=== PATIENT | male | born 1955 | race Caucasian/White ===

== ENCOUNTER 2021-07-18 11:13 | Outpatient (REF) | payer MEDICARE, SELFPAY ==
[2021-07-18 14:41] LABS: Creatinine Urine 135.38 mg/dL; Microalbum/Creatinine Ratio Ur 18.4 ug/mg cr
[2021-07-18 14:49] LABS: Alanine Aminotransferase 28 U/L (0-40); Albumin Level 4.3 g/dL (3.5-5.0); Alkaline Phosphatase 45 U/L (39-117); Anion Gap 13 (12-20); Aspartate Amino Transferase 22 U/L (5-37); Bilirubin Total 0.7 mg/dL (0.0-1.0); Blood Urea Nitrogen 13 mg/dL (9-16); Calcium 9.1 mg/dL (8.4-10.2); Carbon Dioxide 27 mmol/L (22-29); Chloride 105 mmol/L (96-108); Cholesterol 254 mg/dL; Estimated Glomerular Filt Rate > 60; Glucose Fasting 106 mg/dL (60-99); HDL Cholesterol 29 mg/dL; LDL Cholesterol Calculated 185 mg/dl; Potassium 4.1 mmol/L (3.3-5.1); Sodium 141 mmol/L (135-145); Triglycerides 203 mg/dL
== END 2021-07-18 11:14 | disposition home or self-care (01) ==
LOC: HO.WFDLDS 11:13
PROVIDERS: Visit Provider Family Medicine
DX: Z00.00 Encounter for general adult medical examination without abnormal findings (principal); I10 Essential (primary) hypertension; Z12.5 Encounter for screening for malignant neoplasm of prostate
CPT/HCPCS: 36415; 80053; 80061; 82043; 84153; 84443

== ENCOUNTER 2021-09-08 10:13 | Outpatient (REF) | payer MEDICARE, SELFPAY ==
[2021-09-08 11:41] LABS: Anion Gap 11 (12-20); Blood Urea Nitrogen 16 mg/dL (9-16); Calcium 9.6 mg/dL (8.4-10.2); Carbon Dioxide 29 mmol/L (22-29); Chloride 106 mmol/L (96-108); Estimated Glomerular Filt Rate > 60; Glucose Random 107 mg/dL (60-115); Potassium 4.4 mmol/L (3.3-5.1); Sodium 142 mmol/L (135-145)
== END 2021-09-08 10:14 | disposition home or self-care (01) ==
LOC: HO.WFDLDS 10:13
PROVIDERS: Visit Provider Family Medicine
DX: Z00.00 Encounter for general adult medical examination without abnormal findings (principal)
CPT/HCPCS: 36415; 80048

== ENCOUNTER 2021-12-01 09:55 | Outpatient (REF) | payer MEDICARE, SELFPAY ==
[2021-12-01 10:54] LABS: Estimated Average Glucose 114 mg/dL; Hemoglobin A1c % 5.6 %
[2021-12-01 11:04] LABS: Cholesterol 248 mg/dL; HDL Cholesterol 35 mg/dL; LDL Cholesterol Calculated 186 mg/dl; Triglycerides 137 mg/dL
== END 2021-12-01 09:56 | disposition home or self-care (01) ==
LOC: HO.WFDLDS 09:55
PROVIDERS: Visit Provider Family Medicine
DX: Z00.00 Encounter for general adult medical examination without abnormal findings (principal); R73.01 Impaired fasting glucose
CPT/HCPCS: 36415; 80061; 83036

== ENCOUNTER 2022-07-14 12:46 | Outpatient (REF) | payer MEDICARE, SELFPAY ==
[2022-07-14 15:06] LABS: Estimated Average Glucose 117 mg/dL; Hemoglobin A1c % 5.7 %
[2022-07-14 15:57] LABS: Alanine Aminotransferase 20 U/L (0-40); Albumin Level 4.2 g/dL (3.5-5.0); Alkaline Phosphatase 41 U/L (39-117); Anion Gap 14 (12-20); Aspartate Amino Transferase 20 U/L (5-37); Bilirubin Total 0.5 mg/dL (0.0-1.0); Blood Urea Nitrogen 15 mg/dL (9-16); Calcium 8.8 mg/dL (8.4-10.2); Carbon Dioxide 22 mmol/L (22-29); Chloride 109 mmol/L (96-108); Cholesterol 191 mg/dL; Estimated Glomerular Filt Rate > 60; Glucose Random 97 mg/dL (60-115); HDL Cholesterol 35 mg/dL; LDL Cholesterol Calculated 131 mg/dl; Potassium 4.3 mmol/L (3.3-5.1); Sodium 141 mmol/L (135-145); Total Protein 6.7 g/dL (6.5-8.0); Triglycerides 127 mg/dL
[2022-07-15 20:33] LABS: LDL Cholesterol Direct 134 mg/dL (<100)
== END 2022-07-14 12:47 | disposition home or self-care (01) ==
LOC: HO.WFDLDS 12:46
PROVIDERS: Visit Provider Family Medicine
DX: Z00.00 Encounter for general adult medical examination without abnormal findings (principal); R73.03 Prediabetes; E78.5 Hyperlipidemia, unspecified
CPT/HCPCS: 36415; 80053; 80061; 83036; 83721

== ENCOUNTER 2022-11-14 10:19 | Outpatient (REF) | payer MEDICARE, SELFPAY ==
[2022-11-14 12:55] LABS: Appearance Urine Clear; Color Urine Yellow; Glucose Urine UA Negative (Negative); Leukocyte Esterase Urine Trace (Negative); Nitrite Urine Negative (Negative); UMIC TRIGGER UA YES; Urine Blood Trace (Negative); Urine Ketones Negative (Negative); Urine Protein Negative (Neg-Trace)
[2022-11-14 12:59] LABS: Bacteria Urine None Seen (None Seen); Hyaline Casts Urine 0-2 /LPF (0-2); RBC Urine 0-2 /HPF (0-2)
== END 2022-11-14 10:20 | disposition home or self-care (01) ==
LOC: HO.LAB 10:19
PROVIDERS: Visit Provider Family Medicine
DX: Z00.00 Encounter for general adult medical examination without abnormal findings (principal); R30.0 Dysuria; R73.03 Prediabetes
CPT/HCPCS: 81001; 87086

== ENCOUNTER → 2022-12-01 07:42 | Outpatient (REF) | payer MEDICARE, SELFPAY ==
--- NOTE | 2022-12-01 07:44 | CA_ITS ---
Transthoracic Echocardiogram Patient (Last, First, Middle): Dennys Eduardo, Gender: Male Date of : 1955 Age: 67 Procedure Date: 12/01/2022 Procedure Type: Transthoracic Echocardiogram Location: OP Height: 172.72 cm Weight: 124.74 kg BSA: 2.34 m2 Heart Rate: bpm BP: 140 / 82 mmHg Retail Leader: TO Referring MD: Mckinley Stanley MD Survey Statistician: Gilbert Bello MD Symptoms: R01.1 - Cardiac murmur, unspecified Study Quality: Fair/Contrast ECG Rhythm: Sinus Conclusions: - 1. Hyperdynamic LV systolic function with moderate LVH with LVEF of greater than 70% with suggestion of increased filling pressures 2. Severe aortic stenosis with mean gradient of 44 mmHg 3. Upper limits of normal RV systolic pressure with mildly elevated right atrial pressures 4. No gross pericardial effusion Findings Procedure Information Contrast agent, definity, is being given per protocol without apparent complications. Left Ventricle Normal left ventricular cavity size. There is moderately increased left ventricular wall thickness. The left ventricular systolic function is hyperdynamic. The visually estimated ejection fraction is >70%. Spectral Doppler is indicative of an impaired relaxation filling pattern. Elevated filling pressures. E/E prime ratio is >15, consistent with elevated filling pressures. Right Ventricle Normal right ventricular cavity size and systolic function. Atria Both atria are normal in size. Interatrial shunt cannot be excluded. Aortic Valve There is moderate calcification of the aortic valve. There is severe aortic valve stenosis. The peak aortic gradient is 71 mmHg.The mean gradient is 44 mmHg. The aortic valve area is 1.00 cm2. There is mild aortic valve regurgitation. Mitral Valve There is mild anterior and moderate posterior mitral leaflet thickening. There is mild mitral annular calcification. There is trace mitral valve regurgitation. There is no mitral valve stenosis. Pulmonic Valve The pulmonic valve was not well visualized. Tricuspid Valve Likely normal tricuspid valve structure and function. Mildly elevated right atrial pressure. There is no evidence of pulmonary hypertension. Great Vessels The pulmonary artery was not well visualized. There is mild dilatation of the ascending aorta measuring 3.80 cm. Venous The inferior vena cava is mildly dilated and collapses less than 50% with inspiration. Pericardium/Pleural There is no evidence of pericardial effusion. Prior Study Comparison No prior study available for comparison. Measurements 2D Linear Measurements IVSd: 1.52 0.6-0.9/0.6-1.0 cm LVIDd: 4.13 3.9-5.3/4.2-5.9 cm LVIDd Index: 1.76 2.4-3.2/2.2-3.1 cm/m2 LVIDs: 2.33 2.0-3.6 cm LVPWd: 1.42 0.7-1.1 cm LA Diam: 4.10 2.7-3.8/3.0-4.0 cm LAIDs Index: 1.75 1.5-2.3 cm/m2 LV Mass: 294.27 67-162/88-224 g LV Mass Index: 125.75 43-95/49-115 g/m2 LVOT Diam: 2.10 3.0+(-)1.3 cm 2D Systolic Function EF 4C: 72.10 >55% Mitral Valve MV VTI: 0.39 MV Pk Gigi: 1.23 MV Mn Gigi: 0.73 MV Pk Grad: 6.00 MV Mn Grad: 2.00 MV Pk E: 0.94 MV PK A: 1.23 MV Decel Time: 229.00 E/A: 0.80 E'Lateral: 5.55 E'Medial: 5.00 E/E' Med: 18.90 E/E' Lat: 17.00 PHT: 67.00 MVA PHT: 3.28 MVA Continuity: 2.77 Decel [place]: 4.12 Aortic Valve AoV Pk Gigi: 4.21 AoV Mn Gigi: 3.16 AoV VTI: 1.08 AoV Pk Grad: 71.00 Aov Mn Grad: 44.00 PRASAD Cont.VTI: 1.00 AI Pk Gigi: 4.37 AI [place]: 2.18 LVOT LVOT Pk Gigi: 1.46 LVOT Mn Gigi: 1.02 LVOT VTI: 0.31 LVOT Pk Grad: 9.00 LVOT Mn Grad: 5.00 LVOT Diam: 2.10 LVOT Area: 3.46 Diastolic Function MV Pk E: 0.94 MV Pk A: 1.23 E/A: 0.80 E'Medial: 5.00 E/E' Med: 18.90 E' Laterial: 5.55 E/E' Lat: 17.00 Right Ventricle TAPSE (mm): 27.20 TVS' Gigi: 12.80 Tricuspid Valve TR Pk Gigi: 2.63 TR Pk Grad: 28.00 RA Press: 8.00 RVSP: 36.00 Great Vessels Aorta Sinus of Valsalva: 2.96 2.0-3.[address] [place]: 2.50 1.7-3.4 cm Ao Asc: 3.80 2.1-3.4 cm Updated in Other Vendor System with Status of Final Gilbert Bello MD electronically signed on 12/03/2022 12:02:32 PM with status of Final
== END ==
LOC: HO.CARD 07:42
PROVIDERS: PCP Family Medicine; Visit Provider Family Medicine
DX: R07.89 Other chest pain (principal); R01.1 Cardiac murmur, unspecified
CPT/HCPCS: 93306; Q9957

== ENCOUNTER 2023-04-27 14:19 | Outpatient (AMB) | payer MEDICARE, SELFPAY ==
--- NOTE | 2023-04-27 14:23 | A.OFFPC_ITS ---
Vital Signs 04/27/23 14:24 Height 5 ft 7 in Weight 275 lb 4 oz BMI 43.1 BP 118/74 Blood Pressure Location Lt brachial Respiration 12 Pulse 73 Pulse Source Pulse Oximeter Pulse Oximetry (%) 99 Oxygen Delivery Method Room Air Intake Visit Reasons: f/u hypertension and chronic conditions Intake Note: Patient is here to follow up on hypertension and chronic conditions. Allergies Hbjjomb-DMQ-ByM Reductase Inhibitor Allergy (Severe, Verified 04/27/23 14:27) unable to walk Tobacco use date assessed: 11/14/22 HPI f/u hypertension and chronic conditions HPI Details 67 y/o male presents to f/u hypertension and severe aortic valve stenosis. Now?s/p?aortic?valve?replacement?with?bioprosthetic?valve?and?also?CABG. [facility] Dr. Murray Pt notes he started cardiac rehab yesterday. Pt reports he has about 7 tablets left of his Lasik. HPI Comments History of Present Illness0 Details Documentation assistance for Mckinley Stanley MD, was provided by Wm West, Dumb Waiter Operator on 04/27/2023 3:14 PM EST. I, Dr. Stanley, have read, observed, and verified documentation. [facility] Medical History (Updated 04/27/23 @ 15:20 by Wm West) Aortic stenosis High blood pressure High cholesterol Surgical History (Updated 04/27/23 @ 15:20 by Wm West) S/P triple vessel bypass S/P AVR (aortic valve replacement) History of tooth extraction History of cataract surgery Family History (Reviewed 04/27/23 @ 14:37 by Floresita Bellamy [facility]) Father Heart attack Paternal Grandfather Heart attack Mother Cancer Brother Cancer Other Substance use disorder Social History (Reviewed 04/27/23 @ 14:37 by Floresita Bellamy [facility]) Housing: House Alcohol intake: never Patient Tobacco Use Status: Never used Tobacco e-Cigarette/Vaping Use: Never Used Second Hand Smoke Exposure: No service: No Current occupational status: retired Current occupational exposures/hazards: No Cognitive needs: No Hearing needs: No Vision needs: Yes Questionnaire PHQ-9 Over the last 2 weeks, how often have you been bothered by any of the following problems? 1. Little interest or pleasure in doing things: not at all 2. Feeling down, depressed, or hopeless: not at all 3. Trouble falling or staying asleep, or sleeping too much: not at all 4. Feeling tired or having little energy: not at all 5. Poor appetite or overeating: not at all 6. Feeling bad about yourself - or that you are a failure or have let yourself or your family down: not at all 7. Trouble concentrating on things, such as reading the newspaper or watching television: not at all 8. Moving or speaking so slowly that other people could have noticed. Or the opposite - being so fidgety or restless that you have been moving around a lot more than usual: not at all 9. Thoughts that you would be better off or of hurting yourself in some way: not at all Total score: 0 Source: Developed by Drs. Dennys Brady, Wanda Gupta, Andres Dorman and colleagues, with an educational gisele from [employer]. Thrive Questionnaire Date Thrive assessed: 07/18/21 I am a: Patient What is your living situation today?: I have a steady place to live Within the past 12 months, did the food you bought not last and you didn't have the money to get more?: Never true Within the past 12 months, did you worry whether your food would run out before you got money to buy more?: Never true Do you have trouble paying for medicines?: No Do you have trouble getting transportation to medical appointments?: No Do you have trouble paying your heating and electricity bill?: No Do you have trouble taking care of your child, family member or friend?: No Do you have trouble with day-to-day activities such as bathing, preparing meals, shopping, managing finances, etc.?: No Are you currently unemployed and looking for a job?: No Are you interested in more education?: No AUDIT C Alcohol Use Questionnaire (AUDIT-C) 1. How often do you have a drink containing alcohol?: Never 3. How often do you have six or more drinks on one occasion?: Never Total Score: 0 CARMELINA-7 AMB Questionnaire CARMELINA-7 Date CARMELINA - 7 assessed: 04/27/23 Feeling nervous, anxious, or on edge: 0 = Not at all Not being able to stop or control worryin = Not at all Worrying too much about different things: 0 = Not at all Trouble relaxin = Not at all Being so restless that it is hard to sit still: 0 = Not at all Becoming easily annoyed or irritable: 0 = Not at all Feeling afraid as if something awful might happen: 0 = Not at all Total CARMELINA-7 score (0-4 normal; 5-9 mild; 10-14 moderate; 15-21 severe): 0 Source: Developed by Drs. Dennys Brady, Wanda Gupta, Andres Dorman and colleagues, with an educational gisele from [employer]. Review of Systems Const Denies chills, Denies fatigue, Denies fever(s), Denies headache(s) and Denies w eakness ENT Denies dizziness and Denies headache(s) Card Denies dyspnea Resp Denies cough, Denies dyspnea, Denies wheezing and Denies other (shortness of breath) Musc Denies numbness and Denies tingling Neuro Denies dizziness, Denies headache(s), Denies numbness, Denies tingling and Denies weakness Psych Denies anxiety and Denies depression Endo Denies fatigue Aller/Immun Denies wheezing Physical exam (Primary Care) Vital Signs: Last Vital Signs Pulse 73 04/27/23 14:24 Resp 12 04/27/23 14:24 BP 118/74 04/27/23 14:24 Pulse Ox 99 04/27/23 14:24 Oxygen Delivery Method Room Air 04/27/23 14:24 BMI result Body Mass Index 43.1 Tobacco/Smoking Status: Tobacco use Status Tobacco use date assessed 11/14/22 04/27/23 14:36 Patient Tobacco Use Status Never used Tobacco 04/27/23 14:36 e-Cigarette/Vaping Use Never Used 04/27/23 14:36 PHQ-9: PHQ-9 Score PHQ-9: Total score 0 04/27/23 15:04 Thrive Assessment: Date of Thrive Assessment Date Thrive assessed 07/18/21 04/27/23 14:36 Const General: well developed; No acute distress Nutritional Appearance: well nourished and obese morbidly obese Orientation/consciousness: patient oriented x3 HENMT Head: Yes normocephalic and Yes atraumatic Eyes General: appearance normal, both eyes and all related structures Pupils: Equal, round and reactive pupils present EOM: EOMs intact bilaterally Resp Effort & Inspection: normal respiratory effort Auscultation: clear to auscultation bilaterally Cardio Rate: regular rate Rhythm: regular rhythm Heart sounds: S1 normal heart sound present, S2 normal heart sound present, no gallops, Murmur heart sound present and no rubs Neuro General: patient oriented x3 and gait normal Cranial nerves: Yes Equal, round and reactive pupils present Extrem Other: Right?lower?extremity: ?1+?edema Left?lower?extremity:??Trace?edema Psych Affect: normal affect Assessment and Plan Assessment & Plan (1) Essential hypertension: Code(s): I10 - Essential (primary) hypertension Plan: Blood?pressure?appears?well?controlled?on?metoprolol?and?amiodarone. Goal?is?less?than?130/80 Continue?current?medication?regimen He?has?a?blood?pressure?monitor?at?home?and?he?will?let?me ?know?if?his?blood?pressures?are?creeping?up (2) Severe aortic stenosis: Code(s): I35.0 - Nonrheumatic aortic (valve) stenosis Plan: Now?s/p?aortic?valve?replacement?with?bioprosthetic?valve He?is?on?aspirin?and?clopidogrel?and?has?follow-up?with?Cardiology Also?beginning?cardiac?rehab. (3) S/P AVR (aortic valve replacement): Code(s): Z95.2 - Presence of prosthetic heart valve Plan: As?above (4) Status post coronary artery bypass graft: Code(s): Z95.1 - Presence of aortocoronary bypass graft Plan: Coronary?artery?disease?and?now?s/p?CABG Continue?aspirin?and?amiodarone?as?well?as?metoprolol Continue?Zetia Follow-up?with?Cardiology (5) Lower extremity edema: Code(s): R60.0 - Localized edema Plan: Improved?after aortic?valve?replacement?and?CABG?surgeries He?did?have?some?mild?acute?renal?injury Also?has?increased?lower?extremity?edema?on?right?lower?extremity?due?to?removal ?of?great?saphenous?vein?for?bypass?grafting. Elevate?legs Continue?Lasix?as?needed?and?he?can?call?me?if?he?has?worsening?edema. Check?labs?including?renal?function (6) Coronary artery disease: Code(s): I25.10 - Atherosclerotic heart disease of [place] coronary artery without angina pectoris Orders: Orders Comprehensive Met. Panel Today I35.0 - Nonrheumatic aortic (valve) stenosis Coding Level of Care Code Est Pt Level 4 (48351) Diagnoses Essential hypertension I10 Severe aortic stenosis I35.0 S/P AVR (aortic valve replacement) Z95.2 Status post coronary artery bypass graft Z95.1 Lower extremity edema R60.0 Coronary artery disease I25.10
[2023-04-27 14:24] VITALS: BP 118/74; PULSE 73; RESP 12; O2SAT 99; BMI 43.1
== END 2023-04-27 15:54 | disposition home or self-care (01) ==
PROVIDERS: PCP Family Medicine; Visit Provider Family Medicine
DX: I10 Essential (primary) hypertension (principal); I35.0 Nonrheumatic aortic (valve) stenosis; Z95.2 Presence of prosthetic heart valve; Z95.1 Presence of aortocoronary bypass graft; R60.0 Localized edema; I25.10 Atherosclerotic heart disease of native coronary artery without angina pectoris
CPT/HCPCS: 99214

== ENCOUNTER 2023-05-03 09:00 | Outpatient (REF) | payer MEDICARE, SELFPAY | END 2023-05-03 09:01 | disposition home or self-care (01) | LOC: HO.WFDLDS 09:00 | PROVIDERS: Visit Provider Family Medicine | DX: I35.0 Nonrheumatic aortic (valve) stenosis (principal) | CPT/HCPCS: 36415; 80053 ==

== ENCOUNTER 2023-06-14 14:01 | Outpatient (AMB) | payer MEDICARE, SELFPAY ==
--- NOTE | 2023-06-14 13:53 | MHC.PC.OV ---
Intake Visit Reasons: f/u labs Allergies Mvrwwlt-[id number] Reductase Inhibitor Allergy (Severe, Verified 06/14/23 13:54) unable to walk Tobacco use date assessed: 11/14/22 Fall risk assessment: No Falls in past year Last assessed Fall Risk: 06/14/23 HPI f/u labs HPI Details 68 y/o male presents to f/u CPE-labs via telemedicine. Labs were drawn 05/03/23. Reviewed labs with pt. Elevated random glucose at 116. Hx of pre-diabetes and last A1c 11/14/22 6.1%. No recent lipid panel to review. Renal functions are fine. [facility] Medical History (Updated 04/27/23 @ 15:20 by Wm West) Aortic stenosis High blood pressure High cholesterol Surgical History (Updated 04/27/23 @ 15:20 by Wm West) S/P triple vessel bypass S/P AVR (aortic valve replacement) History of tooth extraction History of cataract surgery Family History (Reviewed 04/27/23 @ 14:37 by Floresita Bellamy [facility]) Father Heart attack Paternal Grandfather Heart attack Mother Cancer Brother Cancer Other Substance use disorder Social History (Reviewed 04/27/23 @ 14:37 by Floresita Bellamy [facility]) Housing: House Alcohol intake: never Patient Tobacco Use Status: Never used Tobacco e-Cigarette/Vaping Use: Never Used Second Hand Smoke Exposure: No service: No Current occupational status: retired Current occupational exposures/hazards: No Cognitive needs: No Hearing needs: No Vision needs: Yes Questionnaire Thrive Questionnaire Date Thrive assessed: 07/18/21 CARMELINA-7 AMB Questionnaire CARMELINA-7 Date CARMELINA - 7 assessed: 04/27/23 Source: Developed by Drs. Dennys Brady, Wanda Gupta, Andres Dorman and colleagues, with an educational gisele from [employer]. Review of Systems Const Denies chills, Denies fatigue, Denies fever(s), Denies headache(s) and Denies weakness ENT Denies dizziness and Denies headache(s) Card Denies dyspnea Resp Denies cough, Denies dyspnea, Denies wheezing and Denies other (shortness of breath) Musc Denies numbness and Denies tingling Neuro Denies dizziness, Denies headache(s), Denies numbness, Denies tingling and Denies weakness Psych Denies anxiety and Denies depression Endo Denies fatigue Aller/Immun Denies wheezing Physical exam (Primary Care) Tobacco/Smoking Status: Tobacco use Status Tobacco use date assessed 11/14/22 06/14/23 13:58 Patient Tobacco Use Status Never used Tobacco 06/14/23 13:58 e-Cigarette/Vaping Use Never Used 06/14/23 13:58 Thrive Assessment: Date of Thrive Assessment Date Thrive assessed 07/18/21 06/14/23 13:58 Telehealth Telehealth Location of provider rendering services: practice address Location of patient: address on file Patient Identification confirmed using: Name, : Yes Telehealth method: voice only Patient verbally consented to treatment: Yes Patient verbally consented to billing insurance company: Yes Patient informed of any privacy concerns related to visit: Yes Minutes spent on Phone/Video with Pt.: 6 Assessment and Plan Assessment & Plan (1) JESSICA (acute kidney injury): Code(s): N17.9 - Acute kidney failure, unspecified Plan: Follow-up?of?labs?after?concerns?for?acute?kidney?injury?after?CABG Creatinine?and?EGFR?are?within?normal?limits (2) Coronary artery disease: Code(s): I25.10 - Atherosclerotic heart disease of [place] coronary artery without angina pectoris Plan: Stable?and?followed?by?cardiology. Continues?Cardiac?rehab He?is?on?Zetia?but?has?not?tolerated?any?statins Encouraged?diet?low?in?saturated?fats?and?cholesterol,?weight?control?and?exercise (3) Hyperlipidemia: Code(s): E78.5 - Hyperlipidemia, unspecified Plan: As?above Coding Level of Care Code Tele Est Pt Level 2 (82017) Diagnoses JESSICA (acute kidney injury) N17.9 Coronary artery disease I25.10 Hyperlipidemia E78.5
== END 2023-06-14 14:15 ==
LOC: HO.HMGFM 14:01
PROVIDERS: PCP Family Medicine; Visit Provider Family Medicine
DX: N17.9 Acute kidney failure, unspecified (principal); I25.10 Atherosclerotic heart disease of native coronary artery without angina pectoris; E78.5 Hyperlipidemia, unspecified
CPT/HCPCS: 99441

== ENCOUNTER 2023-09-05 11:37 | Outpatient (AMB) | payer MEDICARE, SELFPAY ==
--- NOTE | 2023-09-05 11:55 | MHC.PC.OV ---
Vital Signs 09/05/23 11:56 Height 5 ft 7 in Weight 295 lb BMI 46.2 BP 116/62 Blood Pressure Location Lt brachial Respiration 16 Pulse 70 Pulse Source Pulse Oximeter Pulse Oximetry (%) 95 Oxygen Delivery Method Room Air Intake Visit Reasons: 3m follow up Intake Note: Patient is here to follow up on bilateral leg swelling. Pattient would like refill of Furosemide. Allergies Epsezji-HYA-KmC Reductase Inhibitor Allergy (Severe, Verified 09/05/23 11:58) unable to walk Tobacco use date assessed: 11/14/22 HPI 3m follow up HPI Details 68 y/o male presents to f/u hypertension, pre-diabetes and lipids. Blood pressure today 116/62. He is on carvedilol 12.5mg, lisinopril 20mg daily. Pt reports some lower extremity swelling. He denies any changes to his diet. He states he has been getting some exercise. Pt reports cardiology is at [facility]. [facility] Medical History (Updated 09/05/23 @ 12:45 by Wm West) Aortic stenosis High blood pressure High cholesterol Surgical History (Updated 04/27/23 @ 15:20 by Wm West) S/P triple vessel bypass S/P AVR (aortic valve replacement) History of tooth extraction History of cataract surgery Family History Father Heart attack Paternal Grandfather Heart attack Mother Cancer Brother Cancer Other Substance use disorder Social History Housing: House Alcohol intake: never Patient Tobacco Use Status: Never used Tobacco e-Cigarette/Vaping Use: Never Used Second Hand Smoke Exposure: No service: No Current occupational status: retired Current occupational exposures/hazards: No Cognitive needs: No Hearing needs: No Vision needs: Yes Questionnaire Thrive Questionnaire Date Thrive assessed: 07/18/21 CARMELINA-7 AMB Questionnaire CARMELINA-7 Date CARMELINA - 7 assessed: 04/27/23 Source: Developed by Drs. Dennys Brady, Wanda Gupta, Andres Dorman and colleagues, with an educational gisele from [employer]. Review of Systems Const Denies chills, Denies fatigue, Denies fever(s), Denies headache(s) and Denies weakness ENT Denies dizziness and Denies headache(s) Card Denies dyspnea Resp Denies cough, Denies dyspnea, Denies wheezing and Denies other (shortness of breath) Musc Denies numbness and Denies tingling Neuro Denies dizziness, Denies headache(s), Denies numbness, Denies tingling and Denies weakness Psych Denies anxiety and Denies depression Endo Denies fatigue Aller/Immun Denies wheezing Physical exam (Primary Care) Vital Signs: Last Vital Signs Pulse 70 09/05/23 11:56 Resp 16 09/05/23 11:56 BP 116/62 09/05/23 11:56 Pulse Ox 95 09/05/23 11:56 Oxygen Delivery Method Room Air 09/05/23 11:56 BMI result Body Mass Index 46.2 Tobacco/Smoking Status: Tobacco use Status Tobacco use date assessed 11/14/22 09/05/23 12:01 Patient Tobacco Use Status Never used Tobacco 09/05/23 12:01 e-Cigarette/Vaping Use Never Used 09/05/23 12:01 Thrive Assessment: Date of Thrive Assessment Date Thrive assessed 07/18/21 09/05/23 12:01 Const General: well developed; No acute distress Nutritional Appearance: well nourished and obese morbidly obese Orientation/consciousness: patient oriented x3 HENMT Head: Yes normocephalic and Yes atraumatic Eyes General: appearance normal, both eyes and all related structures Pupils: Equal, round and reactive pupils present EOM: EOMs intact bilaterally Resp Effort & Inspection: normal respiratory effort Auscultation: clear to auscultation bilaterally Cardio Rate: regular rate Rhythm: regular rhythm Heart sounds: S1 normal heart sound present, S2 normal heart sound present, no gallops, Murmur heart sound present and no rubs Neuro General: patient oriented x3 and gait normal Cranial nerves: Yes Equal, round and reactive pupils present Psych Affect: normal affect Assessment and Plan Assessment & Plan (1) Essential hypertension: Code(s): I10 - Essential (primary) hypertension Plan: Blood?pressure?is?controlled.??Goal?is?less?than?130/80?for?patient?with?coronary?artery?disease Continue?current?medication?regimen (2) Morbid obesity with BMI of 45.0-49.9, adult: Code(s): E66.01 - Morbid (severe) obesity due to excess calories; Z68.42 - Body mass index [BMI] 45.0-49.9, adult Plan: Patient?has?gained?considerable?weight?since?last?visit;?20?lb?in?4?months. He?has?mild?edema?and?feels?that?this?is?mostly?water?weight?though?I?suspect?edema?is?contributing?only?partially Encouraged?diet?exercise?and?weight?loss. Patient?does?not?feel?that?he?can?exercise?much?and?does?not?feel?he?has?much?he?can?do?about?his?diet?but?he?does?agree?to?have?the?nurse?navigator?contact?him?to?go?over?his?diet. (3) Coronary artery disease: Code(s): I25.10 - Atherosclerotic heart disease of [place] coronary artery without angina pectoris Plan: Followed?by[facility]?Cardiology?and?had?recent?echocardiogram?as?well. Will?request?most?recent?note Continue?to?follow-up?with?Cardiology?as?recommended Encouraged?diet,?exercise,?weight?loss. Had?ordered?lipids?at?last?visit?but?he?has?not?had?these?drawn?yet.??I?have?requested?he?get?them?drawn?and?we?can?follow-up?on?them?at?his?next?visit. (4) Hyperlipidemia: Code(s): E78.5 - Hyperlipidemia, unspecified Plan: As?above,?has?not?gotten?his?lipids?drawn?but?will?do?so (5) Swelling of lower extremity: Code(s): M79.89 - Other specified soft tissue disorders Plan: Mild?edema?of?feet?and?ankles Had?been?on?furosemide?in?the?past.??Will?give?him?a?low?dose?p.r.n. Avoid?salt?and?sodium (6) Pre-diabetes: Code(s): R73.03 - Prediabetes Plan: A1c?5.7%?in?June. Too?soon?to?recheck?this. He?has?gained?considerable?weight?and?I?encouraged?him?to?work?at?diet,?exercise?and?weight?loss. Will?recheck?A1c?at?next?visit Coding Level of Care Code Est Pt Level 4 (06526) Diagnoses Essential hypertension I10 Morbid obesity with BMI of 45.0-49.9, adult E66.01; Z68.42 Coronary artery disease I25.10 Hyperlipidemia E78.5 Swelling of lower extremity M79.89 Pre-diabetes R73.03
[2023-09-05 11:56] VITALS: BP 116/62; PULSE 70; RESP 16; O2SAT 95; BMI 46.2
== END 2023-09-05 12:58 | disposition home or self-care (01) ==
PROVIDERS: PCP Family Medicine; Visit Provider Family Medicine
DX: I10 Essential (primary) hypertension (principal); E66.01 Morbid (severe) obesity due to excess calories; Z68.42 Body mass index [BMI] 45.0-49.9, adult; I25.10 Atherosclerotic heart disease of native coronary artery without angina pectoris; E78.5 Hyperlipidemia, unspecified; M79.89 Other specified soft tissue disorders; R73.03 Prediabetes
CPT/HCPCS: 99214

== ENCOUNTER 2023-10-01 12:21 | Outpatient (REF) | payer MEDICARE, SELFPAY ==
[2023-10-01 14:25] LABS: Appearance Urine Clear; Color Urine Yellow; Glucose Urine UA Negative (Negative); Leukocyte Esterase Urine Negative (Negative); Nitrite Urine Negative (Negative); PH 5.5 (5.0-9.0); Specific Gravity - Urine 1.015 (1.005-1.025); Urine Blood Negative (Negative); Urine Ketones Negative (Negative); Urine Protein Negative (Neg-Trace)
[2023-10-01 15:30] LABS: Alanine Aminotransferase 20 U/L (0-40); Albumin Level 4.1 g/dL (3.5-5.0); Alkaline Phosphatase 42 U/L (39-117); Anion Gap 11 (12-20); Aspartate Amino Transferase 18 U/L (5-37); Bilirubin Total 0.5 mg/dL (0.0-1.0); Blood Urea Nitrogen 18 mg/dL (9-16); Calcium 8.9 mg/dL (8.4-10.2); Carbon Dioxide 27 mmol/L (22-29); Chloride 109 mmol/L (96-108); Cholesterol 182 mg/dL (<200); Estimated Glomerular Filt Rate > 60; Glucose Fasting 101 mg/dL (60-99); HDL Cholesterol 31 mg/dL (>40); LDL Cholesterol Calculated 123 mg/dL (<100); Potassium 3.8 mmol/L (3.3-5.1); Sodium 143 mmol/L (135-145); Total Protein 7.1 g/dL (6.5-8.0); Triglycerides 142 mg/dL (<150)
== END 2023-10-01 12:22 | disposition home or self-care (01) ==
LOC: HO.WFDLDS 12:21
PROVIDERS: Visit Provider Family Medicine
DX: Z00.00 Encounter for general adult medical examination without abnormal findings (principal); R30.0 Dysuria; I25.10 Atherosclerotic heart disease of native coronary artery without angina pectoris
CPT/HCPCS: 36415; 80053; 80061; 81003

== ENCOUNTER 2023-11-09 11:20 | Outpatient (AMB) | payer MEDICARE, SELFPAY ==
--- NOTE | 2023-11-09 12:24 | A.OFFPC_ITS ---
Vital Signs 11/09/23 12:26 Height 5 ft 7 in Weight 290 lb 8 oz BMI 45.5 BP 116/64 Blood Pressure Location Lt brachial Position Sitting Pulse 64 Pulse Source Pulse Oximeter Pulse Oximetry (%) 96 Oxygen Delivery Method Room Air Intake Visit Reasons: 3m follow up hdl,wt gain Intake Note: Patient is here for 3 month follow up on cholesterol blood work, and weight gain. Allergies Edjgsei-DJZ-YmX Reductase Inhibitor Allergy (Severe, Verified 11/09/23 12:28) unable to walk Medication List - Last Reconciled 11/09/23 by Mckinley Stanley MD acetaminophen 325 mg PO Q4H PRN aspirin 81 mg PO DAILY carvedilol 12.5 mg PO BID clopidogrel 75 mg PO DAILY ezetimibe 10 mg PO DAILY furosemide 20 mg PO DAILY PRN 30 days lisinopril 20 mg PO DAILY Tobacco use date assessed: 11/09/23 Fall risk assessment: No Falls in past year Last assessed Fall Risk: 11/09/23 Dental Screening Dental Screen Date: 11/09/23 Did you have a dental visit in the last 12 months?: Yes Did you have a dental problem in the last 6 months where you did not have access to dental care?: No Was dental information given to patient?: Patient has dentist HPI 3m follow up hdl,wt gain HPI Details 68 y/o male presents to f/u hypertension , HLD and pre-diabetes. Weight has been improving - lost 5 lbs since office visit in August. Blood pressure today 116/64. He is on lisinopril 20mg, carvedilol 12.5mg b.id. Hx of CAD. Labs were drawn 10/01/23. Reviewed labs with pt. Triglycerides 142. TC 182. LDL 123. HDL low at 31. He is on ezetimibe 10mg daily. Unable to tolerate statins. A1c today 11/09/23 is 5.9%. Pt reports knee pain. PFSH Medical History Aortic stenosis High blood pressure High cholesterol Surgical History S/P triple vessel bypass S/P AVR (aortic valve replacement) History of tooth extraction History of cataract surgery Family History Father Heart attack Paternal Grandfather Heart attack Mother Cancer Brother Cancer Other Substance use disorder Social History Housing: House Alcohol intake: never Patient Tobacco Use Status: Never used Tobacco e-Cigarette/Vaping Use: Never Used Second Hand Smoke Exposure: No service: No Current occupational status: retired Current occupational exposures/hazards: No Cognitive needs: No Hearing needs: No Vision needs: Yes Questionnaire PHQ-9 Over the last 2 weeks, how often have you been bothered by any of the following problems? 1. Little interest or pleasure in doing things: not at all 2. Feeling down, depressed, or hopeless: not at all 3. Trouble falling or staying asleep, or sleeping too much: not at all 4. Feeling tired or having little energy: not at all 5. Poor appetite or overeating: not at all 6. Feeling bad about yourself - or that you are a failure or have let yourself or your family down: not at all 7. Trouble concentrating on things, such as reading the newspaper or watching television: not at all 8. Moving or speaking so slowly that other people could have noticed. Or the opposite - being so fidgety or restless that you have been moving around a lot more than usual: not at all 9. Thoughts that you would be better off or of hurting yourself in some way: not at all Total score: 0 Depression Screening Interpretation: Negative Depression Screening Done: Yes Source: Developed by Drs. Dennys Brady, Wanda Gupta, Andres Dorman and colleagues, with an educational gisele from [employer]. Thrive Questionnaire Date Thrive assessed: 11/09/23 I am a: Patient What is your living situation today?: I have a steady place to live Within the past 12 months, did the food you bought not last and you didn't have the money to get more?: Never true Within the past 12 months, did you worry whether your food would run out before you got money to buy more?: Never true Do you have trouble paying for medicines?: No Do you have trouble getting transportation to medical appointments?: No Do you have trouble paying your heating and electricity bill?: No Do you have trouble taking care of your child, family member or friend?: No Do you have trouble with day-to-day activities such as bathing, preparing meals, shopping, managing finances, etc.?: No Are you currently unemployed and looking for a job?: No Are you interested in more education?: No THRIVE Score: 0 AUDIT C Alcohol Use Questionnaire (AUDIT-C) 1. How often do you have a drink containing alcohol?: Never 3. How often do you have six or more drinks on one occasion?: Never Total Score: 0 CARMELINA-7 AMB Questionnaire CARMELINA-7 Date CARMELINA - 7 assessed: 11/09/23 Feeling nervous, anxious, or on edge: 0 = Not at all Not being able to stop or control worryin = Not at all Worrying too much about different things: 0 = Not at all Trouble relaxin = Not at all Being so restless that it is hard to sit still: 0 = Not at all Becoming easily annoyed or irritable: 0 = Not at all Feeling afraid as if something awful might happen: 0 = Not at all Total CARMELINA-7 score (0-4 normal; 5-9 mild; 10-14 moderate; 15-21 severe): 0 Source: Developed by Drs. Dennys Brady, Wanda Gupta, Andres Dorman and colleagues, with an educational gisele from [employer]. Review of Systems Const Denies chills, Denies fatigue, Denies fever(s), Denies headache(s) and Denies weakness ENT Denies dizziness and Denies headache(s) Card Denies chest pain, Denies lightheadedness, Denies dyspnea and Denies other (Palpitations) Resp Denies cough, Denies dyspnea, Denies wheezing and Denies other ( shortness of breath) Musc Denies numbness and Denies tingling Neuro Denies dizziness, Denies headache(s), Denies numbness, Denies tingling, Denies paresthesias and Denies weakness Psych Denies anxiety and Denies depression Endo Denies fatigue Aller/Immun Denies wheezing Physical exam (Primary Care) Vital Signs: Last Vital Signs Pulse 64 11/09/23 12:26 BP 116/64 11/09/23 12:26 Pulse Ox 96 11/09/23 12:26 Oxygen Delivery Method Room Air 04/12/24 12:26 BMI result Body Mass Index 45.5 Tobacco/Smoking Status: Tobacco use Status Tobacco use date assessed 11/09/23 11/09/23 12:30 Patient Tobacco Use Status Never used Tobacco 11/09/23 12:26 e-Cigarette/Vaping Use Never Used 11/09/23 12:26 PHQ-9: PHQ-9 Score PHQ-9: Total score 0 11/09/23 12:58 Depression Screening Interpretation: Negative Thrive Assessment: Date of Thrive Assessment Date Thrive assessed 11/09/23 11/09/23 12:36 Const General: no acute distress and well developed Nutritional Appearance: obese morbidly obese Orientation/consciousness: patient oriented x3 HENMT Head: Yes normocephalic and Yes atraumatic Eyes General: appearance normal, both eyes and all related structures Pupils: Equal, round and reactive pupils present EOM: EOMs intact bilaterally Resp Effort & Inspection: normal respiratory effort Auscultation: clear to auscultation bilaterally Cardio Rate: regular rate Rhythm: regular rhythm Heart sounds: S1 normal heart sound present, S2 normal heart sound present, no gallops, no murmurs and no rubs Neuro General: patient oriented x3 and gait normal Cranial nerves: Yes Equal, round and reactive pupils present Psych Affect: normal affect Results AMB Hemoglobin A1c AMB Hemoglobin A1c 5.9 % Last Edit by Sharee Ramey CMA on 11/09/23 12:58 Results Reviewed Results Reviewed: Laboratory Last Values Hgb A1c (Clinic) 5.9 % (4.0-6.0) 11/09/23 12:56 Assessment and Plan Assessment & Plan (1) Essential hypertension: Code(s): I10 - Essential (primary) hypertension Plan: Blood?pressure?is?controlled.??Goal?is?less?than?130/80 Continue?lisinopril?and?carvedilol Continue?weight?loss (2) Hyperlipidemia: Code(s): E78.5 - Hyperlipidemia, unspecified Plan: LDL?cholesterol?has?improved?but?still?above?goal?of?less?than?70 He?is?tolerating?Zetia?every?other?day?and?agrees?to?try?taking?this?daily Has?not?tolerated?statin?medication (3) Coronary artery disease: Code(s): I25.10 - Atherosclerotic heart disease of [place] coronary artery without angina pectoris Plan: S/p?bypass Stable Continue?to?control?blood?pressure,?blood?sugars?and?cholesterol Follow-up?with?Cardiology?as?recommended (4) Pre-diabetes: Code(s): R73.03 - Prediabetes Plan: A1c?5.9% Continue?to?work?at?a?diet?low?in?sugars?and?starches (5) Low HDL (under 40): Code(s): E78.6 - Lipoprotein deficiency Plan: Had?advised?exercise?at?prior?visit.??Patient?has?d ifficulty?with?movement?and?exercise?and?currently?has?left?knee?pain. Will?work?at?underlying?barriers?to?exercise (6) Lateral knee pain: Code(s): M25.569 - Pain in unspecified knee Plan: Left?knee?pain?with?locking.??Concern?for?meniscal?injury?and?arthritis Check?x-ray Will?follow-up?after?x-ray Orders: Orders AMB Hemoglobin A1c Today R73.03 - Prediabetes XR knee LT 3V Today M25.569 - Pain in unspecified knee Coding Level of Care Code Est Pt Level 4 (17764) Diagnoses Essential hypertension I10 Hyperlipidemia E78.5 Coronary artery disease I25.10 Pre-diabetes R73.03 Low HDL (under 40) E78.6 Lateral knee pain M25.569
[2023-11-09 12:26] VITALS: BP 116/64; PULSE 64; O2SAT 96; BMI 45.5
== END 2023-11-09 13:07 | disposition home or self-care (01) ==
PROVIDERS: PCP Family Medicine; Visit Provider Family Medicine
DX: I10 Essential (primary) hypertension (principal); E78.5 Hyperlipidemia, unspecified; I25.10 Atherosclerotic heart disease of native coronary artery without angina pectoris; R73.03 Prediabetes; E78.6 Lipoprotein deficiency; M25.562 Pain in left knee
CPT/HCPCS: 83036; 99214

== ENCOUNTER 2023-11-15 10:26 | Outpatient (REF) | payer BC, SELFPAY ==
--- NOTE | ~2023-11-15 | XR_ITS ---
EXAMINATION: XR KNEE, LEFT CLINICAL INFORMATION: Pain without injury. COMPARISON: None available. TECHNIQUE: AP, lateral and sunrise views of the left knee are submitted. FINDINGS: Bony mineralization is normal. There is marked asymmetric narrowing of the medial joint space compartment, with a secondary varus configuration. The lateral and patellofemoral joint space compartments are well-maintained. There is mild tricompartment peripheral osteophyte formation. No fracture or dislocation is seen. There is a moderately large joint effusion. No foreign body is seen. There are atherosclerotic calcifications. There are curvilinear calcifications, which appear to be related to garments anterior to the distal thigh. XR/XR knee LT 3V IMPRESSION: 1. There is tricompartment osteoarthritic change of the left knee, most pronounced of the medial joint space compartment, where degenerative change is severe. 2. There is a moderate varus configuration. 3. There is a moderately large joint effusion.
== END 2023-11-15 10:27 | disposition home or self-care (01) ==
LOC: HO.XRAY 10:26
PROVIDERS: PCP Family Medicine; Visit Provider Family Medicine
DX: M25.562 Pain in left knee (principal)
CPT/HCPCS: 73562

== ENCOUNTER → 2023-12-12 15:11 | Outpatient (AMB) | payer MEDICARE, SELFPAY ==
--- NOTE | 2023-12-12 15:06 | A.OFFPC_ITS ---
Intake Visit Reasons: f/u L knee Pain Telemed Intake Note: Patient is following up on his left knee pain, no change in pain. Allergies Ywemmmn-IZX-UeE Reductase Inhibitor Allergy (Severe, Verified 12/12/23 15:07) unable to walk Tobacco use date assessed: 12/12/23 Fall risk assessment: No Falls in past year Last assessed Fall Risk: 12/12/23 Dental Screening Dental Screen Date: 11/09/23 HPI f/u L knee Pain Telemed HPI Details 68 y/o male presents to review L knee pa in via telemedicine. Knee x-ray 11/15/23 shows: Osteoarthritic changes of the L knee, moderate varus configuration and moderately large joint effusion. PFSH Medical History Aortic stenosis High blood pressure High cholesterol Surgical History S/P triple vessel bypass S/P AVR (aortic valve replacement) History of tooth extraction History of cataract surgery Family History Father Heart attack Paternal Grandfather Heart attack Mother Cancer Brother Cancer Other Substance use disorder Social History Housing: House Alcohol intake: never Patient Tobacco Use Status: Never used Tobacco e-Cigarette/Vaping Use: Never Used Second Hand Smoke Exposure: No service: No Current occupational status: retired Current occupational exposures/hazards: No Cognitive needs: No Hearing needs: No Vision needs: Yes Questionnaire Thrive Questionnaire Date Thrive assessed: 11/09/23 CARMELINA-7 AMB Questionnaire CARMELINA-7 Date CARMELINA - 7 assessed: 11/09/23 Source: Developed by Drs. Dennys Brady, Wanda Gupta, Andres Dorman and colleagues, with an educational gisele from [employer]. Review of Systems Const Denies chills, Denies fatigue, Denies fever(s), Denies headache(s) and Denies weakness ENT Denies dizziness and Denies headache(s) Card Denies dyspnea Resp Denies cough, Denies dyspnea, Denies wheezing and Denies other (shortness of breath) Musc Denies numbness and Denies tingling Neuro Denies dizziness, Denies headache(s), Denies numbness, Denies tingling and Denies weakness Psych Denies anxiety and Denies depression Endo Denies fatigue Aller/Immun Denies wheezing Physical exam (Primary Care) Tobacco/Smoking Status: Tobacco use Status Tobacco use date assessed 12/12/23 12/12/23 15:10 Patient Tobacco Use Status Never used Tobacco 12/12/23 15:07 e-Cigarette/Vaping Use Never Used 12/12/23 15:07 Thrive Assessment: Date of Thrive Assessment Date Thrive assessed 11/09/23 12/12/23 15:07 Telehealth Telehealth Minutes spent on Phone/Video with Pt.: 6 Assessment and Plan Assessment & Plan (1) Osteoarthritis of left knee: Code(s): M17.12 - Unilateral primary osteoarthritis, left knee Plan: Moderately?severe?osteoarthritis?of?left?knee?with?effusion Can?use?ice/heat Will?send?a?script?for?diclofenac?gel Patient?uses?some?ibuprofen?though?I?cautioned?him?that?he?is?already?on?as pirin?and?clopidogrel - watch?for?any?blood?in?stools?or?other?bleeding I?have?referred?him?to?Orthopedics?for?further?evaluation?and?treatment (2) Hyperlipidemia: Code(s): E78.5 - Hyperlipidemia, unspecified Plan: He?will?get?his?labs?checked?prior?to?his?next?visit?for?his?physical. Had?been?taking?Zetia?every?other?day?and?we?change?this?to?daily?dosing- ?He?is?tolerating?Zetia?once?a?day Orders: Orders Complete Blood Count Auto Diff Today Z00.00 - Encounter for general adult medical examination without abnormal findings Lipid Panel Today Z00.00 - Encounter for general adult medical examination without abnormal findings UA and rflx microscopic Today Z00.00 - Encounter for general adult medical examination without abnormal findings TSH reflex Free T4 Today Z00.00 - Encounter for general adult medical examination without abnormal findings Comprehensive [place]. Panel Fast Today Z00.00 - Encounter for general adult medical examination without abnormal findings Microalbumin, Random (w Creat) Today I10 - Essential (primary) hypertension Prostate Specific Antigen Scr Today Z12.5 - Encounter for screening for malignant neoplasm of prostate Referrals Orthopedics Referral M17.12 - Unilateral primary osteoarthritis, left knee, M25.569 - Pain in unspecified knee, M79.89 - Other specified soft tissue disorders Medications: New diclofenac sodium 1% apply to single elbow, wrist or hand; for hand includes palm/fingers/back of hand 2 grams topical BID 100 grams 2RF 30 days Changed From ezetimibe 10 mg PO DAILY 90 days 90 tabs 2RF To ezetimibe One tablet daily 10 mg PO DAILY 90 tabs 2RF 90 days Coding Level of Care Code Tele Est Pt Level 2 (34928) Diagnoses Osteoarthritis of left knee M17.12 Hyperlipidemia E78.5
== END ==
PROVIDERS: PCP Family Medicine; Visit Provider Family Medicine
DX: M17.12 Unilateral primary osteoarthritis, left knee (principal); E78.5 Hyperlipidemia, unspecified
CPT/HCPCS: 99441

== ENCOUNTER 2023-12-25 07:53 | Outpatient (AMB) | payer MEDICARE, BC, SELFPAY ==
[2023-12-25 08:12] VITALS: BMI 45.4
--- NOTE | 2023-12-25 08:12 | MHC.OFFVIS ---
Vital Signs 12/25/23 08:12 Height 5 ft 7 in Weight 290 lb BMI 45.4 Intake Visit Reasons: bilateral knee arthritis Intake Note: Dennys is a 68 year old male who presents as a new patient with complaints of progressively worsening bilateral knee pains, left greater than right. He describes his pains as sharp and severe in nature. His pains have gotten worse over the last few years in spite of continued non operative treatments. He has had cortisone injections in the past which gave him minimal relief. Has also tried Tylenol and ibuprofen which gave him minimal relief. He would like to hold off on surgery for as long as possible. Allergies Nzobktr-NHF-TxZ Reductase Inhibitor Allergy (Severe, Verified 12/25/23 08:16) unable to walk Medication List - Last Reconciled 12/25/23 by Tyler Ramirez MD acetaminophen 325 mg PO Q4H PRN aspirin 81 mg PO DAILY carvedilol 12.5 mg PO BID clopidogrel 75 mg PO DAILY diclofenac sodium 1% 2 grams topical BID 30 days ezetimibe 10 mg PO DAILY 90 days furosemide 20 mg PO DAILY PRN 30 days lisinopril 20 mg PO DAILY meloxicam 15 mg PO DAILY PRN 3 months [facility] Medical History Aortic stenosis High blood pressure High cholesterol Surgical History S/P triple vessel bypass S/P AVR (aortic valve replacement) History of tooth extraction History of cataract surgery Family History Father Heart attack Paternal Grandfather Heart attack Mother Cancer Brother Cancer Other Substance use disorder Social History Housing: House Alcohol intake: never Patient Tobacco Use Status: Never used Tobacco e-Cigarette/Vaping Use: Never Used Second Hand Smoke Exposure: No service: No Current occupational status: retired Current occupational exposures/hazards: No Cognitive needs: No Hearing needs: No Vision needs: Yes Physical Exam Vital Signs: BMI result Body Mass Index 45.4 Const Other: Well-nourished well-developed very friendly male awake alert and oriented x3 in no acute distress Extrem Other: Bilateral lower extremity examination shows good capillary refill, no skin lesions noted, normal sensation light touch Bilateral knee examination shows minimal effusions, palpable crepitus with range of motion, pain with range of motion, range of motion from -3 degrees to 115 degrees, no instability Results Reviewed Results Reviewed: X-rays of the patient's left knee show severe degenerative joint disease most significant in the medial compartment, no acute bony abnormalities Assessment & Plan Assessment & Plan (1) Arthritis of both knees: Code(s): M17.0 - Bilateral primary osteoarthritis of knee Category: Medical Plan Mr. Eduardo presents with bilateral knee pains due to degenerative joint disease. I had a lengthy discussion with the patient regarding the treatment options. He wishes to hold off on total knee replacement surgery for as long as possible. I agree with this plan. I will see whether not the patient's insurance company will cover a viscosupplementation injection for both of his knees. I will see him back once the injections are available. Feel free to call me at any time should questions regarding his orthopedic management arise. Thank you very much for asking me to see this very friendly patient. I spent 22 minutes in reviewing the patient's records and imaging studies, seeing the patient and documenting in the medical record. Medications: New meloxicam 15 mg PO DAILY PRN 90 tabs 2RF pain 3 months Coding Level of Care Code New Pt Level 3 (81864) Diagnoses Arthritis of both knees M17.0
== END 2023-12-25 08:32 | disposition home or self-care (01) ==
PROVIDERS: PCP Family Medicine; Visit Provider Orthopaedic Surgery
DX: M17.0 Bilateral primary osteoarthritis of knee (principal)
CPT/HCPCS: 99203

== ENCOUNTER → 2023-12-25 07:53 | Outpatient (BNVA) | payer BC, SELFPAY | PROVIDERS: PCP Family Medicine; Visit Provider Orthopaedic Surgery | DX: M17.0 Bilateral primary osteoarthritis of knee (principal) | CPT/HCPCS: 99202 ==

== ENCOUNTER 2024-01-17 08:16 | Outpatient (AMB) | payer MEDICARE, BC, SELFPAY ==
--- NOTE | 2024-01-17 08:20 | A.OFFVIS_ITS ---
Vital Signs 01/17/24 08:22 Height 5 ft 7 in Weight 290 lb BMI 45.4 Intake Visit Reasons: B/L Durolane Gel Injections Intake Note: Dennys is a 68 year old male who presents with complaints of bilateral knee pains. He describes his pains as achy in nature. His pains have gotten worse over the last few years in spite of continued non operative treatments. Has tried meloxicam and Tylenol which gave him mild relief. He denies any locking or giving way. He would like to hold off on surgery for as long as possible. Allergies Ddwlaht-HFY-TeD Reductase Inhibitor Allergy (Severe, Verified 01/17/24 08:22) unable to walk Medication List - Last Reconciled 01/17/24 by Tyler Ramirez MD acetaminophen 325 mg PO Q4H PRN aspirin 81 mg PO DAILY carvedilol 12.5 mg PO BID clopidogrel 75 mg PO DAILY diclofenac sodium 1% 2 grams topical BID 30 days ezetimibe 10 mg PO DAILY 90 days furosemide 20 mg PO DAILY PRN 30 days lisinopril 20 mg PO DAILY meloxicam 15 mg PO DAILY PRN 3 months PFSH Medical History Aortic stenosis High blood pressure High cholesterol Surgical History S/P triple vessel bypass S/P AVR (aortic valve replacement) History of tooth extraction History of cataract surgery Family History Father Heart attack Paternal Grandfather Heart attack Mother Cancer Brother Cancer Other Substance use disorder Social History Housing: House Alcohol intake: never Patient Tobacco Use Status: Never used Tobacco e-Cigarette/Vaping Use: Never Used Second Hand Smoke Exposure: No service: No Current occupational status: retired Current occupational exposures/hazards: No Cognitive needs: No Hearing needs: No Vision needs: Yes Physical Exam Vital Signs: BMI result Body Mass Index 45.4 Const Other: Well-nourished well-developed very friendly male awake alert and oriented x3 in no acute distress Extrem Other: Bilateral lower extremity examination shows good capillary refill, no skin lesions noted, normal sensation light touch Bilateral knee examination shows minimal effusions, palpable crepitus with range of motion, pain with range of motion, no instability Office Procedures Joint Injection/Drain Joint Injection/Drain Primary Site: right knee Prep: site was prepped using aseptic technique Injected: 60 mg of (Durolane viscosupplementation) and 1% plain lidocaine Procedure: The patient tolerated the procedure well Coding - Large joint Procedure code (CPT) selection complete Joint Injection/Drain Joint Injection/Drain Primary Site: left knee Prep: site was prepped using aseptic technique Injected: 60 mg of (Durolane viscosupplementation) and 1% plain lidocaine Procedure: The patient tolerated the procedure well Coding - Large joint Procedure code (CPT) selection complete Results Reviewed Results Reviewed: X-rays of the patient's bilateral knee show joint space narrowing, subchondral sclerosis, no acute bony abnormalities Assessment & Plan Assessment & Plan (1) Arthritis of left knee: Code(s): M17.12 - Unilateral primary osteoarthritis, left knee Category: Medical (2) Arthritis of right knee: Code(s): M17.11 - Unilateral primary osteoarthritis, right knee Category: Medical Plan Mr. Eduardo presents with bilateral knee pains due to degenerative joint disease. I had a lengthy discussion with the patient regarding the treatment options. He wishes to hold off on surgery for as long as possible. I agree with this plan. The risks and benefits of bilateral knee Durolane viscosupplementation inj ections were discussed at length with the patient. The patient wished to proceed. Tolerated the injections well. He will continue with his home exercise program. He will follow up with me on an as-needed basis should his symptoms not plateau at an unacceptable level over the next few months. Feel free to call me at any time should questions regarding his orthopedic management arise. I spent 22 minutes in reviewing the patient's records and imaging studies, seeing the patient and documenting in the medical record. Orders: Orders AMB Joint Injection/Aspiration Today M17.12 - Unilateral primary osteoarthritis, left knee AMB Joint Injection/Aspiration Today M17.11 - Unilateral primary osteoarthritis, right knee Coding Level of Care Code Est Pt Level 3 (97039) Diagnoses Arthritis of left knee M17.12 Arthritis of right knee M17.11 CPT Codes Coding - Large joint: 65107 - Large joint ([id number]) Coding - 44517 Large joint: 67733 - Large joint ([id number])
[2024-01-17 08:22] VITALS: BMI 45.4
== END 2024-01-17 08:54 | disposition home or self-care (01) ==
PROVIDERS: PCP Family Medicine; Visit Provider Orthopaedic Surgery
DX: M17.0 Bilateral primary osteoarthritis of knee (principal)
CPT/HCPCS: 20610; 99213

== ENCOUNTER → 2024-01-17 08:16 | Outpatient (BNVA) | payer MEDICARE, BC, SELFPAY | PROVIDERS: PCP Family Medicine; Visit Provider Orthopaedic Surgery | DX: M17.0 Bilateral primary osteoarthritis of knee (principal) | CPT/HCPCS: 20610; 99212; J7318 ==

== ENCOUNTER 2024-02-07 10:49 | Outpatient (AMB) | payer MEDICARE, SELFPAY ==
[2024-02-07 11:29] VITALS: BP 142/80; PULSE 73; RESP 15; TEMP 36.1; O2SAT 96; BMI 46.4
--- NOTE | 2024-02-07 11:29 | MHC.PC.OV ---
Vital Signs 02/07/24 11:29 Height 5 ft 7 in Weight 296 lb 2 oz BMI 46.4 BP 142/80 H Blood Pressure Location Rt brachial Position Sitting Respiration 15 Pulse 73 Pulse Source Pulse Oximeter Temp 97 F Temp Source Temporal Artery Scan Pulse Oximetry (%) 96 Oxygen Delivery Method Room Air Intake Visit Reasons: Extended exam w f/u labs & health Maint. [employer] Required: No Accompanied by: Self / Same As Patient Allergies Efgiiry-MJF-IcM Reductase Inhibitor Allergy (Severe, Verified 02/07/24 11:37) unable to walk Medication List - Last Reconciled 02/07/24 by Mckinley Stanley MD acetaminophen 325 mg PO Q4H PRN aspirin 81 mg PO DAILY carvedilol 12.5 mg PO BID clopidogrel 75 mg PO DAILY diclofenac sodium 1% 2 grams topical BID 30 days ezetimibe 10 mg PO DAILY 90 days furosemide 20 mg PO DAILY PRN 30 days lisinopril 20 mg PO DAILY meloxicam 15 mg PO DAILY PRN 3 months Tobacco use date assessed: 02/07/24 Fall risk assessment: No Falls in past year Last assessed Fall Risk: 02/07/24 Dental Screening Dental Screen Date: 02/07/24 Did you have a dental visit in the last 12 months?: Yes Did you have a dental problem in the last 6 months where you did not have access to dental care?: No Was dental information given to patient?: Patient has dentist HPI Extended exam w f/u labs & health Maint. HPI Details 68 y/o male presents for an extended exam with f/u labs. No recent labs to review. Had increased zetia but he states this did not go through. BP today 142/80. Hx of CAD. He is on carvedilol and lisinopril. Pt notes injection therapy worked well for his knees. [facility] Medical History Aortic stenosis High blood pressure High cholesterol Surgical History S/P triple vessel bypass S/P AVR (aortic valve replacement) History of tooth extraction History of cataract surgery Family History Father Heart attack Paternal Grandfather Heart attack Mother Cancer Brother Cancer Other Substance use disorder Social History Housing: House Alcohol intake: never Patient Tobacco Use Status: Never used Tobacco e-Cigarette/Vaping Use: Never Used Second Hand Smoke Exposure: No service: No Current occupational status: retired Current occupational exposures/hazards: No Cognitive needs: No Hearing needs: No Vision needs: Yes Questionnaire PHQ-9 Over the last 2 weeks, how often have you been bothered by any of the following problems? 1. Little interest or pleasure in doing things: not at all 2. Feeling down, depressed, or hopeless: not at all 3. Trouble falling or staying asleep, or sleeping too much: not at all 4. Feeling tired or having little energy: not at all 5. Poor appetite or overeating: not at all 6. Feeling bad about yourself - or that you are a failure or have let yourself or your family down: not at all 7. Trouble concentrating on things, such as reading the newspaper or watching television: not at all 8. Moving or speaking so slowly that other people could have noticed. Or the opposite - being so fidgety or restless that you have been moving around a lot more than usual: not at all 9. Thoughts that you would be better off or of hurting yourself in some way: not at all Total score: 0 Depression Screening Interpretation: Negative Depression Screening Done: Yes 70228 - PHQ-9 Billing: Yes Source: Developed by Drs. Dennys Brady, Wanda Gupta, Andres Dorman and colleagues, with an educational gisele from [email or web address]. Thrive Questionnaire Date Thrive assessed: 02/07/24 I am a: Patient What is your living situation today?: I have a steady place to live Within the past 12 months, did the food you bought not last and you didn't have the money to get more?: Never true Within the past 12 months, did you worry whether your food would run out before you got money to buy more?: Never true Do you have trouble paying for medicines?: No Do you have trouble getting transportation to medical appointments?: No Do you have trouble paying your heating and electricity bill?: No Do you have trouble taking care of your child, family member or friend?: No Do you have trouble with day-to-day activities such as bathing, preparing meals, shopping, managing finances, etc.?: No Are you currently unemployed and looking for a job?: No Are you interested in more education?: No Please select the resources that you would like help with: None Currently or been in a relationship where the following occur: No concerns reported THRIVE Score: 0 AUDIT C Alcohol Use Questionnaire (AUDIT-C) 1. How often do you have a drink containing alcohol?: Never 3. How often do you have six or more drinks on one occasion?: Never Total Score: 0 CARMELINA-7 AMB Questionnaire CARMELINA-7 Date CARMELINA - 7 assessed: 02/07/24 Feeling nervous, anxious, or on edge: 0 = Not at all Not being able to stop or control worryin = Not at all Worrying too much about different things: 0 = Not at all Trouble relaxin = Not at all Being so restless that it is hard to sit still: 0 = Not at all Becoming easily annoyed or irritable: 0 = Not at all Feeling afraid as if something awful might happen: 0 = Not at all Total CARMELINA-7 score (0-4 normal; 5-9 mild; 10-14 moderate; 15-21 severe): 0 Source: Developed by Drs. Dennys Brady, Wanda Gupta, Andres Dorman and colleagues, with an educational gisele from [email or web address]. CARMELINA-7 Assessment Billing CARMELINA-7 Assessment Tool: CARMELINA-7 Assessment 09521 Review of Systems Const Denies chills, Denies fatigue, Denies fever(s), Denies headache(s) and Denies weakness Eyes Denies change in vision ENT Denies dizziness, Denies headache(s), Denies hearing loss, Denies nasal congestion, Denies sinus pain, Denies sinus pressure and Denies sore throat Card Denies chest pain, Denies lightheadedness, Denies dyspnea and Denies other (palpitations) Resp Denies cough, Denies dyspnea and Denies wheezing GI Denies abdominal pain, Denies melena, Denies hematochezia, Denies change in bowel habits, Denies dyspepsia and Denies nausea Denies hematuria and Denies dysuria Musc Denies abnormal gait, Denies myalgias, Denies arthralgias, Denies numbness and Denies tingling Skin/Breast Denies rash, Denies unusual bruising and Denies wounds Neuro Denies abnormal gait, Denies dizziness, Denies headache(s), Denies memory loss, Denies numbness, Denies Sensory deficit (Neuro), Denies tingling and Denies weakness Psych Denies anxiety, Denies depression and Denies memory loss Endo Denies cold intolerance, Denies fatigue, Denies heat intolerance, Denies polydipsia and Denies polyuria Fabio/Lymph Denies easy bleeding and Denies easy bruising Aller/Immun Denies wheezing Physical exam (Primary Care) Vital Signs: Last Vital Signs Temp 97 F 02/07/24 11:29 Pulse 73 02/07/24 11:29 Resp 15 02/07/24 11:29 BP 142/80 H 02/07/24 11:29 Pulse Ox 96 02/07/24 11:29 Oxygen Delivery Method Room Air 02/07/24 11:29 BMI result Body Mass Index 46.4 Tobacco/Smoking Status: Tobacco use Status Tobacco use date assessed 02/07/24 02/07/24 11:39 Patient Tobacco Use Status Never used Tobacco 02/07/24 11:39 e-Cigarette/Vaping Use Never Used 02/07/24 11:39 PHQ-9: PHQ-9 Score PHQ-9: Total score 0 02/07/24 11:39 Depression Screening Interpretation: Negative Thrive Assessment: Date of Thrive Assessment Date Thrive assessed 02/07/24 02/07/24 11:39 Currently or been in a relationship where the following occur: No concerns reported Const General: no acute distress, well developed, alert and awake Nutritional Appearance: well nourished Orientation/consciousness: patient oriented x3 HENMT Head: Yes normocephalic and Yes atraumatic Ears: hearing grossly normal bilaterally and TM's normal bilaterally General nose exam: Normal external nose present and Normal nares present Mouth: Normal oral and palatal mucosa present and moist mucous membranes Teeth and gingiva: dentition normal Throat: Yes posterior oropharynx normal Eyes General: appearance normal, both eyes and all related structures Pupils: Equal, round and reactive pupils present and Pupil accommodation reflex normal EOM: EOMs intact bilaterally Neck Neck: Yes normal visual inspection, Yes no lymphadenopathy and Yes trachea midline Thyroid: Thyroid normal Carotids: no bruits Lymphatic: no lymphadenopathy noted Chest Chest palpation & inspection: normal inspection of the chest Resp Effort & Inspection: normal respiratory effort Auscultation: clear to auscultation bilaterally Cardio Rate: regular rate Rhythm: regular rhythm Heart sounds: S1 normal heart sound present, S2 normal heart sound present, no gallops, no murmurs and no rubs Bruits: no abdominal aortic bruits and no carotid bruits GI Palpation (GI): No Abdominal aortic bruit present, Soft to palpation, nontender, No hepatosplenomegaly present and No Rebound tenderness present Auscultation: normal bowel sounds General: Yes no CVA tenderness Back/Spine/Pelvis Back: no CVA tenderness Cervical Spine: cervical ROM normal and No Cervical spine tenderness Thoracic/Lumbar Spine: thoraco-lumbar ROM normal, No pain with thoraco-lumbar ROM, No thoracic spinal tenderness and No lumbar spinal tenderness Skin Lesions: no lesions Rashes: no rashes Trauma: no lacerations or abrasions Wounds: no wounds Nails: normal Neuro General: patient oriented x3 and No gait normal Cranial nerves: Yes Equal, round and reactive pupils present Cognition (Neuro): normal cognition Gait exam (Neuro): gait abnormal Motor exam (neuro): 5/5 motor strength present throughout Sensory Exam: No Sensory deficit (Neuro) Deep tendon reflexes (DTR's): Right patellar reflex intensity grade: 2+ and Left patellar reflex intensity grade: 2+ Extrem General: Yes normal to inspection and No edema Psych Appearance: grossly normal Affect: normal affect Attitude: cooperative Thought process: Normal thought process present Results AMB Hemoglobin A1c AMB Hemoglobin A1c 6.2 % Last Edit by Floresita Bellamy CMA on 02/07/24 11:58 Assessment and Plan Assessment & Plan (1) Arthritis of both knees: Code(s): M17.0 - Bilateral primary osteoarthritis of knee Plan: Now?s/p?injection?therapy Mild?improvement?in?walking?according?to?his??though?he?still?has?mild?unsteadiness?and?pain. Continue?to?follow-up?with? Continue?meloxicam (2) Essential hypertension: Code(s): I10 - Essential (primary) hypertension Plan: Blood?pressure?is?above?goal?of?less?than?130/80 Continue?current?medications?and?will?add?a?small?amount?of?amlodipine.??He?is?taken?this?medication?before.??Can?cause?some lower?extremity?edema?and?he?will?watch?for?this.??Advised?he?elevate?legs?if?mild?or?let?me?know?if?more?significant. (3) Coronary artery disease: Code(s): I25.10 - Atherosclerotic heart disease of [place] coronary artery without angina pectoris Plan: Stable S/p?stent?and?will?finish?up?with?clopidogrel?soon Follow-up?with?Cardiology Has?been?out?of?Zetia?recently Has?not?tolerated?other?cholesterol?medications. Send?new?script?for?refill?of?Zetia?at?10?mg?daily (4) Hyperlipidemia: Code(s): E78.5 - Hyperlipidemia, unspecified Plan: As?above,?patient?will?resume?Zetia?at?higher?dose?of?10?mg?daily Checking?lipids?today?which?will?likely?be?high?as?he?has?been?out?of?this?medication. (5) Pre-diabetes: Code(s): R73.03 - Prediabetes Plan: A1c?has?climbed?to?6.2% Encouraged?a?diet?lower?in?sugars?and?starches?and?we?will?continue?to?monitor. (6) Screening for prostate cancer: Code(s): Z12.5 - Encounter for screening for malignant neoplasm of prostate Plan: Checking?PSA?with?his?lab?work?which?he?will?get?drawn?today (7) Adult general medical exam: Code(s): Z00.00 - Encounter for general adult medical examination without abnormal findings Plan: 68-year-old?male?presents?for?an?extended?exam Orders: Orders AMB Hemoglobin A1c Today Z13.9 - Encounter for screening, unspecified Medications: New amlodipine 2.5 mg PO DAILY 90 days 90 tabs 2RF Refilled ezetimibe One tablet daily 10 mg PO DAILY 90 days 90 tabs 2RF Coding Level of Care Code Tele Est Pt Level 4 (88274) Diagnoses Arthritis of both knees M17.0 Essential hypertension I10 Coronary artery disease I25.10 Hyperlipidemia E78.5 Pre-diabetes R73.03 Screening for prostate cancer Z12.5 Adult general medical exam Z00.00 Additional Codes CARMELINA-7 Assessment Billing - CARMELINA-7 Assessment Tool: CARMELINA-7 Assessment 09619 ([id number])
== END 2024-02-07 12:13 | disposition home or self-care (01) ==
PROVIDERS: PCP Family Medicine; Visit Provider Family Medicine
DX: R73.03 Prediabetes (principal); M17.0 Bilateral primary osteoarthritis of knee; I10 Essential (primary) hypertension; I25.10 Atherosclerotic heart disease of native coronary artery without angina pectoris; E78.5 Hyperlipidemia, unspecified; Z12.5 Encounter for screening for malignant neoplasm of prostate
CPT/HCPCS: 83036; 99214

== ENCOUNTER 2024-02-07 12:15 | Outpatient (REF) | payer MEDICARE, BC, SELFPAY ==
[2024-02-07 14:44] LABS: Appearance Urine Clear; Color Urine Yellow; Glucose Urine UA Negative (Negative); Leukocyte Esterase Urine Negative (Negative); Nitrite Urine Negative (Negative); PH 5.5 (5.0-9.0); Specific Gravity - Urine 1.015 (1.005-1.025); Urine Blood Negative (Negative); Urine Ketones Negative (Negative); Urine Protein Negative (Neg-Trace)
[2024-02-07 14:48] LABS: MANUAL DIFF FLAG NO
[2024-02-07 14:56] LABS: Basophils Absolute Auto 0.1 X10*3/uL (0.0-0.2); Basophils Percent Auto 1.2 % (0-2); Eosinophils Absolute Auto 0.3 X10*3/uL (0.0-0.4); Eosinophils Percent Auto 3.2 % (0-4); Hemoglobin 14.3 g/dl (14.0-18.0); Imm Gran Abs Auto 0.04 X10*3/uL (0.00-0.03); Imm Gran Pct Auto 0.5 % (0.0-0.4); Lymphocytes Absolute Auto 1.8 X10*3/uL (1.2-4.9); Lymphocytes Percent Auto 22.9 % (20-40); Mean Corpuscular HGB Conc 34.9 g/dl (31.0-36.0); Mean Corpuscular Volume 88.9 fL (80.0-98.0); Mean Platelet Volume 10.3 fL (9.4-12.4); Monocytes Absolute Auto 0.5 X10*3/uL (0.1-1.2); Monocytes Percent Auto 6.2 % (2-11); Neutrophils Absolute Auto 5.1 x10*3/uL (2.0-8.3); Platelet Count 187 X10*3/uL (160-400); Red Blood Count 4.61 X10*6/uL (4.60-5.80); White Blood Count 7.7 X10*3/uL (4.8-10.8)
[2024-02-07 15:32] LABS: Alanine Aminotransferase 21 U/L (0-40); Albumin Level 4.1 g/dL (3.5-5.0); Alkaline Phosphatase 40 U/L (39-117); Anion Gap 12 (12-20); Aspartate Amino Transferase 17 U/L (5-37); Bilirubin Total 0.6 mg/dL (0.0-1.0); Blood Urea Nitrogen 18 mg/dL (9-16); Calcium 9.3 mg/dL (8.4-10.2); Carbon Dioxide 27 mmol/L (22-29); Chloride 107 mmol/L (96-108); Cholesterol 248 mg/dL (<200); Estimated Glomerular Filt Rate > 60; Glucose Fasting 108 mg/dL (60-99); HDL Cholesterol 33 mg/dL (>40); LDL Cholesterol Calculated 173 mg/dL (<100); Potassium 3.8 mmol/L (3.3-5.1); Sodium 142 mmol/L (135-145); Triglycerides 214 mg/dL (<150)
[2024-02-07 15:36] LABS: Creatinine Urine 96.66 mg/dL; Microalbum/Creatinine Ratio Ur 22.7 ug/mg cr (<30)
[2024-02-07 15:44] LABS: Prostate Specific Antigen Scr 0.25 ng/mL (<0.05-4.0)
[2024-02-07 15:54] LABS: TSH reflex Free T4 1.33 uIU/mL (0.32-4.0)
== END 2024-02-07 12:16 | disposition home or self-care (01) ==
LOC: HO.WFDLDS 12:15
PROVIDERS: Visit Provider Family Medicine
DX: Z00.00 Encounter for general adult medical examination without abnormal findings (principal); I10 Essential (primary) hypertension; Z12.5 Encounter for screening for malignant neoplasm of prostate
CPT/HCPCS: 36415; 80053; 80061; 81003; 82043; 82570; 84153; 84443; 85025

== ENCOUNTER → 2024-03-07 15:23 | Outpatient (AMB) | payer MEDICARE, BC, SELFPAY ==
--- NOTE | 2024-03-07 15:10 | MHC.PC.OV ---
Intake Visit Reasons: f/u CPE-labs via telemedicine Intake Note: Follow up on labs Allergies Wqcjmhj-ELF-FsI Reductase Inhibitor Allergy (Severe, Verified 03/07/24 15:11) unable to walk Tobacco use date assessed: 02/07/24 Dental Screening Dental Screen Date: 02/07/24 HPI f/u CPE-labs via telemedicine HPI Details 68 y/o male presents to f/u CPE-labs via telemedicine. Labs drawn 02/07/24. Reviewed labs with pt. Hct mildly low at 41.0. Fasting glucose of 108. Triglycerides 214. TC 248. LDL 173. HDL low at 33. Hx of CAD. PSA 0.25. PFSH Medical History Aortic stenosis High blood pressure High cholesterol Surgical History S/P triple vessel bypass S/P AVR (aortic valve replacement) History of tooth extraction History of cataract surgery Family History Father Heart attack Paternal Grandfather Heart attack Mother Cancer Brother Cancer Other Substance use disorder Social History Housing: House Alcohol intake: never Patient Tobacco Use Status: Never used Tobacco e-Cigarette/Vaping Use: Never Used Second Hand Smoke Exposure: No service: No Current occupational status: retired Current occupational exposures/hazards: No Cognitive needs: No Hearing needs: No Vision needs: Yes Questionnaire Thrive Questionnaire Date Thrive assessed: 02/07/24 CARMELINA-7 AMB Questionnaire CARMELINA-7 Date CARMELINA - 7 assessed: 02/07/24 Source: Developed by Drs. Dennys Brady, Wanda Gupta, Andres Dorman and colleagues, with an educational gisele from [employer]. Physical exam (Primary Care) Tobacco/Smoking Status: Tobacco use Status Tobacco use date assessed 02/07/24 03/07/24 15:13 Patient Tobacco Use Status Never used Tobacco 03/07/24 15:13 e-Cigarette/Vaping Use Never Used 03/07/24 15:13 Thrive Assessment: Date of Thrive Assessment Date Thrive assessed 02/07/24 03/07/24 15:13 Telehealth Telehealth Telehealth Platform: Telephone Location of provider rendering services: practice address Location of patient: address on file Patient Identification confirmed using: Name, : Yes Telehealth method: voice only Patient verbally consented to treatment: Yes Patient verbally consented to billing insurance company: Yes Patient informed of any privacy concerns related to visit: Yes Minutes spent on Phone/Video with Pt.: 8 Assessment and Plan Assessment & Plan (1) Hyperlipidemia: Code(s): E78.5 - Hyperlipidemia, unspecified Plan: Patient?with?history?of?coronary?artery?disease?and?stents Now?with?LDL?cholesterol?greater?than?170.??Goal?is?less?than?70.??Does?note?that?he?had?been?off?of?his?Zetia?but?LDL?with?Zetia?was?still?about?50 above his?LDL?goal. He?does?not?tolerate?statins which?cause?severe?muscle?pain?and?inability?to?walk. Discussed?with?patient?trial?of Nexletol which?is?a?non?statin?medication?shown?to?reduce?LDL?cholesterol?by?up?to?40%?in?conjunction?with?Zetia. Patient?is?willing?to?try?this.??May?need?prior?authorization?which?we?will?do He?will?recheck?his?lipids?in?3?months?if?he?is?able?to?get?this?and?we?can?follow-up?at?that?time (2) Screening for prostate cancer: Code(s): Z12.5 - Encounter for screening for malignant neoplasm of prostate Plan: PSA?was?within?normal?range (3) Coronary artery disease: Code(s): I25.10 - Atherosclerotic heart disease of [place] coronary artery without angina pectoris Plan: As?above Follow-up?with?Cardiology?as?recommended (4) Borderline anemia: Code(s): D64.9 - Anemia, unspecified Plan: We?can?follow-up?on?this?at?his?next?blood?draw Orders: Orders Lipid Panel Today I25.10 - Atherosclerotic heart disease of [place] coronary artery without angina pectoris, Z00.00 - Encounter for general adult medical examination without abnormal findings Comprehensive [place]. Panel Fast Today I25.10 - Atherosclerotic heart disease of [place] coronary artery without angina pectoris, Z00.00 - Encounter for general adult medical examination without abnormal findings Complete Blood Count Auto Diff Today I25.10 - Atherosclerotic heart disease of [place] coronary artery without angina pectoris, Z00.00 - Encounter for general adult medical examination without abnormal findings Medications: New bempedoic acid (Nexletol) 180 mg PO DAILY 90 days 90 tabs 3RF Coding Level of Care Code Tele Est Pt Level 2 (25892) Diagnoses Hyperlipidemia E78.5 Screening for prostate cancer Z12.5 Coronary artery disease I25.10 Borderline anemia D64.9
== END ==
LOC: HO.HMGFM 15:23
PROVIDERS: PCP Family Medicine; Visit Provider Family Medicine
DX: E78.5 Hyperlipidemia, unspecified (principal); Z12.5 Encounter for screening for malignant neoplasm of prostate; I25.10 Atherosclerotic heart disease of native coronary artery without angina pectoris; D64.9 Anemia, unspecified
CPT/HCPCS: 99441

== ENCOUNTER 2024-04-24 08:23 | Outpatient (AMB) | payer MEDICARE, BC, SELFPAY ==
--- NOTE | 2024-04-24 08:27 | A.OFFVIS_ITS ---
Vital Signs 04/24/24 08:29 Height 5 ft 7 in Weight 296 lb BMI 46.4 Intake Visit Reasons: Bilateral knee pains Intake Note: Dennys is a 68 year old male who presents with complaints of progressively worsening bilateral knee pains. He describes his pains as sharp in nature. His pains have gotten worse in spite of continued non operative treatments. He has failed the last 3 months of conservative treatment including a home exercise program, Tylenol and meloxicam. He has had cortisone injections in the past which gave him no relief. He has also had Durolane viscosupplementation injections which gave him good relief. He wishes to hold off on surgery if at all possible. At this point his bilateral knee pains are interfering with his activities of daily living and his ability to sleep well through the night. Allergies Peyailt-WWF-LyL Reductase Inhibitor Allergy (Severe, Verified 04/24/24 08:30) unable to walk Medication List - Last Reconciled 04/24/24 by Tyler Ramirez MD acetaminophen 325 mg PO Q4H PRN amlodipine 2.5 mg PO DAILY 90 days aspirin 81 mg PO DAILY bempedoic acid (Nexletol) 180 mg PO DAILY 90 days carvedilol 12.5 mg PO BID clopidogrel 75 mg PO DAILY diclofenac sodium 1% 2 grams topical BID 30 days ezetimibe 10 mg PO DAILY 90 days furosemide 20 mg PO DAILY PRN 30 days lisinopril 20 mg PO DAILY meloxicam 15 mg PO DAILY PRN 3 months [facility] Medical History (Updated 04/24/24 @ 08:47 by Tyler Ramirez MD) Osteoarthritis of left knee Aortic stenosis High blood pressure High cholesterol Surgical History S/P triple vessel bypass S/P AVR (aortic valve replacement) History of tooth extraction History of cataract surgery Family History Father Heart attack Paternal Grandfather Heart attack Mother Cancer Brother Cancer Other Substance use disorder Social History Housing: House Alcohol intake: never Patient Tobacco Use Status: Never used Tobacco e-Cigarette/Vaping Use: Never Used Second Hand Smoke Exposure: No service: No Current occupational status: retired Current occupational exposures/hazards: No Cognitive needs: No Hearing needs: No Vision needs: Yes Physical Exam Vital Signs: BMI result Body Mass Index 46.4 Const Other: Well-nourished well-developed very friendly male awake alert and oriented x3 in no acute distress Extrem Other: Bilateral lower extremity examination shows good capillary refill, no skin lesions noted, normal sensation light touch Bilateral knee examination shows minimal effusions, palpable crepitus with range of motion, pain with range of motion, no instability Results Reviewed Results Reviewed: X-rays of the patient's bilateral knee show joint space narrowing, subchondral sclerosis, no acute bony abnormalities Assessment & Plan Assessment & Plan (1) Osteoarthritis of left knee: Code(s): M17.12 - Unilateral primary osteoarthritis, left knee Category: Medical (2) Osteoarthritis of right knee: Code(s): M17.11 - Unilateral primary osteoarthritis, right knee Category: Medical Plan Mr. Bard Zimmer presents with bilateral knee pains due to osteoarthritis. I had a lengthy discussion with the patient regarding the treatment options. He wishes to hold off on surgery for as long as possible. He has not gotten good relief from cortisone injections in the past. He has gotten good relief from Durolane injections in the past. Thus, I will see whether or not the patient's insurance company will cover a another Durolane injection for both of his knees. I will see him back once the injections are available. Feel free to call me at any time should questions regarding his orthopedic management arise. I spent 22 minutes in reviewing the patient's records and imaging studies, seeing the patient and documenting in the medical record. Coding Level of Care Code Est Pt Level 3 (68368) Complex EM visit Add On G2211 Diagnoses Osteoarthritis of left knee M17.12 Osteoarthritis of right knee M17.11
[2024-04-24 08:29] VITALS: BMI 46.4
== END 2024-04-24 08:44 | disposition home or self-care (01) ==
PROVIDERS: PCP Family Medicine; Visit Provider Orthopaedic Surgery
DX: M17.0 Bilateral primary osteoarthritis of knee (principal)
CPT/HCPCS: 99213; G2211

== ENCOUNTER → 2024-04-24 08:23 | Outpatient (BNVA) | payer MEDICARE, BC, SELFPAY | PROVIDERS: PCP Family Medicine; Visit Provider Orthopaedic Surgery | DX: M17.0 Bilateral primary osteoarthritis of knee (principal) | CPT/HCPCS: 99212 ==

== ENCOUNTER 2024-07-21 07:52 | Outpatient (AMB) | payer MEDICARE, BC, SELFPAY ==
[2024-07-21 07:56] VITALS: BMI 46.4
--- NOTE | 2024-07-21 07:56 | A.OFFVIS_ITS ---
Vital Signs 07/21/24 07:56 Height 5 ft 7 in Weight 296 lb BMI 46.4 Intake Visit Reasons: Bilateral knee pain Intake Note: Dennys is a 69 year old male who presents with complaints of progressively worsening bilateral knee pains. He describes his pains as sharp in nature. He has had cortisone injections in the past which gave him no relief. Has also had viscosupplementation injections which gave him fairly good relief. He has tried Tylenol and anti-inflammatory medicines which gave him minimal relief. He would like to hold off on total knee replacement surgery for as long as possible. Allergies Vlzdnto-PMH-CrW Reductase Inhibitor Allergy (Severe, Verified 07/21/24 08:00) unable to walk Medication List - Last Reconciled 07/22/24 by Tyler Ramirez MD acetaminophen 325 mg PO Q4H PRN amlodipine 2.5 mg PO DAILY 90 days aspirin 81 mg PO DAILY bempedoic acid (Nexletol) 180 mg PO DAILY 90 days carvedilol 12.5 mg PO BID clopidogrel 75 mg PO DAILY diclofenac sodium 1% 2 grams topical BID 30 days ezetimibe 10 mg PO DAILY 90 days furosemide 20 mg PO DAILY PRN 90 days lisinopril 20 mg PO DAILY meloxicam 15 mg PO DAILY PRN 3 months [facility] Medical History (Updated 04/24/24 @ 08:47 by Tyler Ramirez MD) Osteoarthritis of left knee Aortic stenosis High blood pressure High cholesterol Surgical History S/P triple vessel bypass S/P AVR (aortic valve replacement) History of tooth extraction History of cataract surgery Family History Father Heart attack Paternal Grandfather Heart attack Mother Cancer Brother Cancer Other Substance use disorder Social History Housing: House Alcohol intake: never Patient Tobacco Use Status: Never used Tobacco e-Cigarette/Vaping Use: Never Used Second Hand Smoke Exposure: No service: No Current occupational status: retired Current occupational exposures/hazards: No Cognitive needs: No Hearing needs: No Vision needs: Yes Physical Exam Vital Signs: BMI result Body Mass Index 46.4 Const Other: Well-nourished well-developed very friendly male awake alert and oriented x3 in no acute distress Extrem Other: Bilateral lower extremity examination shows good capillary refill, no skin lesions noted, normal sensation light touch Bilateral knee examination shows minimal effusions, palpable crepitus with range of motion, pain with range of motion, no instability Office Procedures AMB Joint Injection/Aspiration Joint Injection/Aspiration Primary Site: left knee Prep: site was prepped using aseptic technique Injected: 60 mg of (Durolane) and 1% plain lidocaine Procedure: The patient tolerated the procedure well Coding 75641 - Large joint Procedure code (CPT) selection complete AMB Joint Injection/Aspiration Joint Injection/Aspiration Primary Site: right knee Prep: site was prepped using aseptic technique Injected: 60 mg of (Durolane) and 1% plain lidocaine Procedure: The patient tolerated the procedure well Coding 18447 - Large joint Procedure code (CPT) selection complete Results Reviewed Results Reviewed: X-rays of the patient's bilateral knees taken previously show joint space narrowing, subchondral sclerosis, no acute bony abnormalities Assessment & Plan Assessment & Plan (1) Osteoarthritis of left knee: Code(s): M17.12 - Unilateral primary osteoarthritis, left knee Category: Medical (2) Osteoarthritis of right knee: Code(s): M17.11 - Unilateral primary osteoarthritis, right knee Category: Medical (3) Pain in both knees: Code(s): M25.561 - Pain in right knee; M25.562 - Pain in left knee Plan Mr. Eduardo presents with bilateral knee pains due to osteoarthritis. I had a lengthy discussion with the patient regarding the treatment options. The risks and benefits of bilateral knee viscosupplementation injections were discussed at length with the patient. The patient wished to proceed. He tolerated the injections well. He will continue with his home exercise program. He will contact me prior to his follow-up appointment in 3 months should any questions or concerns arise. Feel free to call me at any time should questions regarding his orthopedic management arise. I spent 21 minutes in reviewing the patient's records and imaging studies, seeing the patient and documenting in the medical record. Orders: Orders AMB Joint Injection/Aspiration 07/21/24 M17.12 - Unilateral primary osteoarthritis, left knee AMB Joint Injection/Aspiration 07/21/24 M17.11 - Unilateral primary osteoarthritis, right knee Coding Level of Care Code Est Pt Level 3 (19454) Complex EM visit Add On G2211 Diagnoses Osteoarthritis of left knee M17.12 Osteoarthritis of right knee M17.11 Pain in both knees M25.561; M25.562 CPT Codes Coding - 52450 Large joint: 06879 - Large joint ([id number]) Coding - 49768 Large joint: 93611 - Large joint ([id number])
== END 2024-07-21 08:05 | disposition home or self-care (01) ==
PROVIDERS: PCP Family Medicine; Visit Provider Orthopaedic Surgery
DX: M17.0 Bilateral primary osteoarthritis of knee (principal)
CPT/HCPCS: 20610; 99213

== ENCOUNTER → 2024-07-21 07:52 | Outpatient (BNVA) | payer MEDICARE, BC, SELFPAY | PROVIDERS: PCP Family Medicine; Visit Provider Orthopaedic Surgery | DX: M17.0 Bilateral primary osteoarthritis of knee (principal); M25.561 Pain in right knee; M25.562 Pain in left knee | CPT/HCPCS: 20610; 99212; J2003; J7318 ==

== ENCOUNTER 2024-08-12 15:39 | Outpatient (AMB) | payer MEDICARE, SELFPAY ==
--- NOTE | 2024-08-12 15:53 | A.OFFPC_ITS ---
Vital Signs 08/12/24 16:05 Height 5 ft 7 in Weight 301 lb 2 oz BMI 47.2 BP 150/90 H Blood Pressure Location Lt brachial Position Sitting Respiration 14 Pulse 61 Pulse Source Pulse Oximeter Pulse Oximetry (%) 96 Oxygen Delivery Method Room Air Intake Visit Reasons: Medication Review Intake Note: medication review Allergies Ruqlbfo-VPX-ZtD Reductase Inhibitor Allergy (Severe, Verified 08/12/24 16:04) unable to walk Medication List - Last Reconciled 08/12/24 by Mckinley Stanley MD acetaminophen 325 mg PO Q4H PRN amlodipine 2.5 mg PO DAILY 90 days aspirin 81 mg PO DAILY bempedoic acid (Nexletol) 180 mg PO DAILY 90 days carvedilol 12.5 mg PO BID clopidogrel 75 mg PO DAILY diclofenac sodium 1% 2 grams topical BID 30 days ezetimibe 10 mg PO DAILY 90 days furosemide 20 mg PO DAILY PRN 90 days lisinopril 20 mg PO DAILY meloxicam 15 mg PO DAILY PRN 3 months Tobacco use date assessed: 02/07/24 Dental Screening Dental Screen Date: 02/07/24 HPI Medication Review HPI Details 69 y/o male presents to f/u HLD, pre-cheyenne richard, chronic conditions. He is maxed out on Zetia and statins cause severe muscle weakness and inability to walk. Trialed Nexletol in conjunction with Zetia. Notes he had trialed nexletol but had not been able to renew this. No recent lipid panel to review. A1c today 08/12/24 is 6.2%. [facility] Medical History (Updated 04/24/24 @ 08:47 by Tyler Ramirez MD) Osteoarthritis of left knee Aortic stenosis High blood pressure High cholesterol Surgical History S/P triple vessel bypass S/P AVR (aortic valve replacement) History of tooth extraction History of cataract surgery Family History Father Heart attack Paternal Grandfather Heart attack Mother Cancer Brother Cancer Other Substance use disorder Social History Housing: House Alcohol intake: never Patient Tobacco Use Status: Never used Tobacco e-Cigarette/Vaping Use: Never Used Second Hand Smoke Exposure: No service: No Current occupational status: retired Current occupational exposures/hazards: No Cognitive needs: No Hearing needs: No Vision needs: Yes Questionnaire PHQ-9 Over the last 2 weeks, how often have you been bothered by any of the following problems? 1. Little interest or pleasure in doing things: not at all 2. Feeling down, depressed, or hopeless: not at all 3. Trouble falling or staying asleep, or sleeping too much: not at all 4. Feeling tired or having little energy: not at all 5. Poor appetite or overeating: not at all 6. Feeling bad about yourself - or that you are a failure or have let yourself or your family down: not at all 7. Trouble concentrating on things, such as reading the newspaper or watching television: not at all 8. Moving or speaking so slowly that other people could have noticed. Or the opposite - being so fidgety or restless that you have been moving around a lot more than usual: not at all 9. Thoughts that you would be better off or of hurting yourself in some way: not at all Total score: 0 Source: Developed by Drs. Dennys Brady, Wanda Gupta, Andres Dorman and colleagues, with an educational gisele from [employer]. Thrive Questionnaire Date Thrive assessed: 08/05/24 I am a: Patient What is your living situation today?: I have a steady place to live Within the past 12 months, did the food you bought not last and you didn't have the money to get more?: Never true Within the past 12 months, did you worry whether your food would run out before you got money to buy more?: Never true Do you have trouble paying for medicines?: No Do you have trouble getting transportation to medical appointments?: No Do you have trouble paying your heating and electricity bill?: No Do you have trouble taking care of your child, family member or friend?: No Do you have trouble with day-to-day activities such as bathing, preparing meals, shopping, managing finances, etc.?: No Are you currently unemployed and looking for a job?: No Are you interested in more education?: No Please select the resources that you would like help with: None Currently or been in a relationship where the following occur: No concerns reported THRIVE Score: 0 AUDIT C Alcohol Use Questionnaire (AUDIT-C) 1. How often do you have a drink containing alcohol?: Monthly or less 2. How many drinks containing alcohol do you have on a typical day when you are drinking?: 1 or 2 3. How often do you have six or more drinks on one occasion?: Never Total Score: 1 CARMELINA-7 AMB Questionnaire CARMELINA-7 Date CARMELINA - 7 assessed: 02/07/24 Feeling nervous, anxious, or on edge: 0 = Not at all Not being able to stop or control worryin = Not at all Worrying too much about different things: 0 = Not at all Trouble relaxin = Not at all Being so restless that it is hard to sit still: 0 = Not at all Becoming easily annoyed or irritable: 0 = Not at all Feeling afraid as if something awful might happen: 0 = Not at all Total CARMELINA-7 score (0-4 normal; 5-9 mild; 10-14 moderate; 15-21 severe): 0 Source: Developed by Drs. Dennys Brady, Wanda Gupta, Andres Dorman and colleagues, with an educational gisele from [employer]. Review of Systems Const Denies chills, Denies fatigue, Denies fever(s), Denies headache(s) and Denies weakness ENT Denies dizziness and Denies headache(s) Card Denies dyspnea Resp Denies cough, Denies dyspnea, Denies wheezing and Denies other (shortness of breath) Musc Denies numbness and Denies tingling Neuro Denies dizziness, Denies headache(s), Denies numbness, Denies tingling and Denies weakness Psych Denies anxiety and Denies depression Endo Denies fatigue Aller/Immun Denies wheezing Physical exam (Primary Care) Vital Signs: Last Vital Signs Pulse 61 08/12/24 16:05 Resp 14 08/12/24 16:05 BP 150/90 H 08/12/24 16:05 Pulse Ox 96 08/12/24 16:05 Oxygen Delivery Method Room Air 08/12/24 16:05 BMI result Body Mass Index 47.2 Tobacco/Smoking Status: Tobacco use Status Tobacco use date assessed 02/07/24 08/12/24 15:55 Patient Tobacco Use Status Never used Tobacco 08/12/24 15:55 e-Cigarette/Vaping Use Never Used 08/12/24 15:55 PHQ-9: PHQ-9 Score PHQ-9: Total score 0 08/12/24 16:32 Thrive Assessment: Date of Thrive Assessment Date Thrive assessed 08/05/24 08/12/24 15:55 Currently or been in a relationship where the following occur: No concerns reported Const General: well developed; No acute distress Nutritional Appearance: obese morbidly obese Orientation/consciousness: patient oriented x3 HENMT Head: Yes normocephalic and Yes atraumatic Eyes General: appearance normal, both eyes and all related structures Pupils: Equal, round and reactive pupils present EOM: EOMs intact bilaterally Resp Effort & Inspection: normal respiratory effort Auscultation: clear to auscultation bilaterally Cardio Rate: regular rate Rhythm: regular rhythm Heart sounds: S1 normal heart sound present, S2 normal heart sound present, no gallops, no murmurs and no rubs Neuro General: patient oriented x3 and gait normal Cranial nerves: Yes Equal, round and reactive pupils present Psych Affect: normal affect Results AMB Hemoglobin A1c AMB Hemoglobin A1c 6.2 % Last Edit by Pippa Conner CMA on 08/12/24 17:48 Coding Level of Care Code Est Pt Level 4 (15466) Diagnoses Essential hypertension I10 Pre-diabetes R73.03 Hyperlipidemia E78.5 Coronary artery disease I25.10 Assessment & Plan Assessment & Plan (1) Essential hypertension: Code(s): I10 - Essential (primary) hypertension Category: Medical Plan: Blood?pressure?is?high Amlodipine?has?not?helped?much?but?has?increased?edema?in?his?feet He?will?continue?carvedilol?and?I?will?increase?his?lisinopril. He?checks?blood?pressures?at?home?and?will?let?me?know?if?he?has?any?problems (2) Pre-diabetes: Code(s): R73.03 - Prediabetes Category: Medical Plan: A1c is 6.2% and?is?increased?from?prior. Encouraged?diet?lower?in?sugars?and?starches Will?continue?to?monitor (3) Hyperlipidemia: Code(s): E78.5 - Hyperlipidemia, unspecified Category: Medical Plan: LDL?cholesterol?is?significantly?elevated.??Patient?has?coronary?artery?disease. Difficulty?with?statins See?below (4) Coronary artery disease: Code(s): I25.10 - Atherosclerotic heart disease of [place] coronary artery without angina pectoris Category: Medical Plan: Last?LDL?cholesterol?was?173. Goal?is?less?than?70?for?patient? with?coronary?artery?disease?and?coronary?bypass?graft. Has?not?tolerated?any?statins.??He?is?maxed?out?on?Zetia. Gave?him?a?script?for Nexletol and?patient?says?he?tolerated?this?and?took?it?till?th e?script?ran?out.??He?was?not?given?any?further?scripts?as?insurance?apparently? declined?it. Will?send?it?again?and?get?a?prior?authorization. He?has?not?had?follow-up?with?Cardiology.??Overdue?for?t his.??Referred?back?Cardiology Orders: Orders IRON PROFILE Today I25.10 - Atherosclerotic heart disease of [place] coronary artery without angina pectoris Vitamin B12 and Folate Today E53.8 - Deficiency of other specified B group vitamins, I25.10 - Atherosclerotic heart disease of [place] coronary artery without angina pectoris AMB Hemoglobin A1c Today R73.03 - Prediabetes Referrals Cardiology Referral I25.10 - Atherosclerotic heart disease of [place] coronary artery without angina pectoris Medications: Changed From lisinopril 20 mg PO DAILY To lisinopril 40 mg PO DAILY 90 days 90 tabs 3RF Refilled bempedoic acid (Nexletol) 180 mg PO DAILY 90 days 90 tabs 3RF I25.10 - Atherosclerotic heart disease of [place] coronary artery without angina pectoris bempedoic acid (Nexletol) 180 mg PO DAILY 90 days 90 tabs 3RF I25.10 - Atherosclerotic heart disease of [place] coronary artery without angina pectoris Discontinued amlodipine Discontinued Reason: Doctor's Order 2.5 mg PO DAILY 90 days 90 tabs 2RF
[2024-08-12 16:05] VITALS: BP 150/90; PULSE 61; RESP 14; O2SAT 96; BMI 47.2
== END 2024-08-12 16:55 | disposition home or self-care (01) ==
PROVIDERS: PCP Family Medicine; Visit Provider Family Medicine
DX: I10 Essential (primary) hypertension (principal); R73.03 Prediabetes; E78.5 Hyperlipidemia, unspecified; I25.10 Atherosclerotic heart disease of native coronary artery without angina pectoris

== ENCOUNTER → 2024-08-12 15:39 | Outpatient (BNVA) | payer MEDICARE, BC, SELFPAY | PROVIDERS: PCP Family Medicine; Visit Provider Family Medicine | DX: R73.03 Prediabetes (principal); I10 Essential (primary) hypertension; E78.5 Hyperlipidemia, unspecified; I25.10 Atherosclerotic heart disease of native coronary artery without angina pectoris; E53.8 Deficiency of other specified B group vitamins | CPT/HCPCS: 83036; 96127; 99212 ==

== ENCOUNTER 2024-08-13 09:24 | Outpatient (REF) | payer MEDICARE, SELFPAY ==
[2024-08-13 11:04] LABS: MANUAL DIFF FLAG NO
[2024-08-13 11:12] LABS: Basophils Absolute Auto 0.1 X10*3/uL (0.0-0.2); Eosinophils Absolute Auto 0.3 X10*3/uL (0.0-0.4); Eosinophils Percent Auto 3.4 % (0-4); Hematocrit 41.7 % (42.0-52.0); Hemoglobin 15.1 g/dl (14.0-18.0); Imm Gran Abs Auto 0.02 X10*3/uL (0.00-0.03); Imm Gran Pct Auto 0.2 % (0.0-0.4); Lymphocytes Absolute Auto 1.8 X10*3/uL (1.2-4.9); Lymphocytes Percent Auto 21.8 % (20-40); Mean Corpuscular HGB Conc 36.2 g/dl (31.0-36.0); Mean Corpuscular Hemoglobin 30.9 pg (27.0-33.0); Mean Corpuscular Volume 85.5 fL (80.0-98.0); Mean Platelet Volume 9.7 fL (9.4-12.4); Monocytes Absolute Auto 0.6 X10*3/uL (0.1-1.2); Monocytes Percent Auto 7.1 % (2-11); Neutrophils Absolute Auto 5.3 x10*3/uL (2.0-8.3); Neutrophils Percent Auto 66.5 % (45-73); Platelet Count 199 X10*3/uL (160-400); Red Blood Count 4.88 X10*6/uL (4.60-5.80); Red Cell Distribution Width 12.2 % (11.0-16.0)
[2024-08-13 11:33] LABS: Alanine Aminotransferase 35 U/L (0-40); Albumin Level 4.2 g/dL (3.5-5.0); Alkaline Phosphatase 43 U/L (39-117); Anion Gap 11 (12-20); Aspartate Amino Transferase 39 U/L (5-37); Bilirubin Total 0.7 mg/dL (0.0-1.0); Blood Urea Nitrogen 16 mg/dL (9-16); Calcium 8.9 mg/dL (8.4-10.2); Carbon Dioxide 28 mmol/L (22-29); Chloride 106 mmol/L (96-108); Cholesterol 207 mg/dL (<200); Estimated Glomerular Filt Rate > 60; Glucose Fasting 119 mg/dL (60-99); HDL Cholesterol 30 mg/dL (>40); Iron 110 mcg/dL (45-160); LDL Cholesterol Calculated 140 mg/dL (<100); Percent Iron Saturation 40 % (15-50); Potassium 3.6 mmol/L (3.3-5.1); Sodium 141 mmol/L (135-145); Total Iron Binding Capacity 272 mcg/dL (228-428); Total Protein 7.2 g/dL (6.5-8.0); Triglycerides 187 mg/dL (<150); Unsaturated Iron Binding 162 ug/dL
[2024-08-13 12:07] LABS: Folate 9.7 ng/mL (> or = 4.0); Vitamin B12 449 pg/mL (200-900)
== END 2024-08-13 09:25 | disposition home or self-care (01) ==
LOC: HO.WFDLDS 09:24
PROVIDERS: Visit Provider Family Medicine
DX: Z00.00 Encounter for general adult medical examination without abnormal findings (principal); I25.10 Atherosclerotic heart disease of native coronary artery without angina pectoris; E53.8 Deficiency of other specified B group vitamins
CPT/HCPCS: 36415; 80053; 80061; 82607; 82746; 83540; 85025

== ENCOUNTER 2024-09-02 09:32 | Outpatient (AMB) | payer MEDICARE, SELFPAY ==
--- NOTE | 2024-09-02 09:25 | A.OFFPC_ITS ---
Intake Visit Reasons: f/u labs via telemedicine Intake Note: patient here for telehealth for lab review Dianetic Counselor Required: No Allergies Jbtntkd-XPJ-OvA Reductase Inhibitor Allergy (Severe, Verified 09/02/24 09:26) unable to walk Medication List - Last Reconciled 09/02/24 by Mckinley Stanley MD acetaminophen 325 mg PO Q4H PRN aspirin 81 mg PO DAILY bempedoic acid (Nexletol) 180 mg PO DAILY 90 days carvedilol 12.5 mg PO BID clopidogrel 75 mg PO DAILY diclofenac sodium 1% 2 grams topical BID 30 days ezetimibe 10 mg PO DAILY 90 days furosemide 20 mg PO DAILY PRN 90 days lisinopril 40 mg PO DAILY 90 days meloxicam 15 mg PO DAILY PRN 3 months Tobacco use date assessed: 09/02/24 Fall risk assessment: No Falls in past year Last assessed Fall Risk: 09/02/24 Dental Screening Dental Screen Date: 09/02/24 Did you have a dental visit in the last 12 months?: Yes Did you have a dental problem in the last 6 months where you did not have access to dental care?: No Was dental information given to patient?: Patient has dentist HPI f/u labs via telemedicine HPI Details 69 y/o male presents to f/u CPE-labs via telemedicine. Labs drawn 08/13/24. Reviewed labs with pt. Fasting glucose of 119. A1c 6.2%. Triglycerides 187. TC 207. LDL 140. HDL 30. He is on ezetimibe 10mg daily. [facility] Medical History (Updated 04/24/24 @ 08:47 by Tyler Ramirez MD) Osteoarthritis of left knee Aortic stenosis High blood pressure High cholesterol Surgical History S/P triple vessel bypass S/P AVR (aortic valve replacement) History of tooth extraction History of cataract surgery Family History Father Heart attack Paternal Grandfather Heart attack Mother Cancer Brother Cancer Other Substance use disorder Social History Housing: House Alcohol intake: never Patient Tobacco Use Status: Never used Tobacco e-Cigarette/Vaping Use: Never Used Second Hand Smoke Exposure: No service: No Current occupational status: retired Current occupational exposures/hazards: No Cognitive needs: No Hearing needs: No Vision needs: Yes Questionnaire Thrive Questionnaire Date Thrive assessed: 08/05/24 CARMELINA-7 AMB Questionnaire CARMELINA-7 Date CARMELINA - 7 assessed: 02/07/24 Source: Developed by Drs. Dennys Brady, Wanda Gupta, Andres Dorman and colleagues, with an educational gsiele from [employer]. Review of Systems Const Denies chills, Denies fatigue, Denies fever(s), Denies headache(s) and Denies weakness ENT Denies dizziness and Denies headache(s) Card Denies dyspnea Resp Denies cough, Denies dyspnea, Denies wheezing and Denies other (shortness of breath) Musc Denies numbness and Denies tingling Neuro Denies dizziness, Denies headache(s), Denies numbness, Denies tingling and Denies weakness Psych Denies anxiety and Denies depression Endo Denies fatigue Aller/Immun Denies wheezing Physical exam (Primary Care) Tobacco/Smoking Status: Tobacco use Status Tobacco use date assessed 09/02/24 09/02/24 09:29 Patient Tobacco Use Status Never used Tobacco 09/02/24 09:29 e-Cigarette/Vaping Use Never Used 09/02/24 09:29 Thrive Assessment: Date of Thrive Assessment Date Thrive assessed 08/05/24 09/02/24 09:29 Telehealth Telehealth Telehealth Platform: Telephone Location of provider rendering services: practice address Location of patient: address on file Patient Identification confirmed using: Name, : Yes Telehealth method: voice only Patient verbally consented to treatment: Yes Patient verbally consented to billing insurance company: Yes Patient informed of any privacy concerns related to visit: Yes Minutes spent on Phone/Video with Pt.: 9 Coding Level of Care Code Tele Est Pt Level 2 (79958) Diagnoses Hyperlipidemia E78.5 Coronary artery disease I25.10 Pre-diabetes R73.03 Assessment & Plan Assessment & Plan (1) Hyperlipidemia: Code(s): E78.5 - Hyperlipidemia, unspecified Category: Medical Plan: LDL?cholesterol?is?still?significantly?above?goal?of?less?than?70?for?patient?wi th?coronary?artery?disease. However,?patient?has?not?been?able?tolerate?statins?and?is?taking?the?maximum?do se?of?Zetia?and Bempadoic Acid. He?says?he?has?an?upcoming?appointment?with?cardiology?and?I?recommended?he ?follow-up?with?them?and?I?will?request?their?most?recent?note Will?send?lab?results?to?[facility]?cardiology (2) Coronary artery disease: Code(s): I25.10 - Atherosclerotic heart disease of [place] coronary artery without angina pectoris Category: Medical Plan: Currently?stable Follow-up?with?[facility]?Cardiology?as?recommended (3) Pre-diabetes: Code(s): R73.03 - Prediabetes Category: Medical Plan: Following?A1c And?glucose?control. Will?follow-up?visit Medications: Changed From clopidogrel 75 mg PO DAILY To clopidogrel 75 mg PO DAILY 90 tabs 3RF 90 days
--- OUTSIDE RECORDS SUMMARY | 2024-09-02 10:03 | XMS_ITS | Clinical Summary ---
Author Organization [facility] Facility Address [address] [place] [id number] Care Team Providers Care Pickup Driver Name Role Phone Unavailable Primary Care Provider Unavailabl e Social History Tobacco Use Types Packs/Day Years Used Date Smoking Tobacco: Never Assessed Sex and Gender Information Value Date Recorded Sex Assigned at Not on file Legal Sex Male 9:34 AM EDT Gender Identity Not on file Sexual Orientation Not on file Plan of Treatment Health Maintenance Due Date Last Done Comments Colorectal Cancer Screening: Annual FOBT 2004 Colorectal Cancer Screening: Colonoscopy 2004 Colorectal Cancer Screening: Sigmoidoscopy 2004 Pneumococcal Vaccine: 65+ Ye ars (1 of 1 - PCV) 2020 Influenza Vaccine (#1) 2024 Hepatitis B Vaccine Aged Out No longe r eligible based on patient's age to complete this topic Insurance MEDICARE [facility] MEDICARE [facility]
== END 2024-09-02 17:05 | disposition home or self-care (01) ==
LOC: HO.HMCFM 09:32
PROVIDERS: PCP Family Medicine; Visit Provider Family Medicine
DX: E78.5 Hyperlipidemia, unspecified (principal); I25.10 Atherosclerotic heart disease of native coronary artery without angina pectoris; R73.03 Prediabetes

== ENCOUNTER → 2024-09-02 09:32 | Outpatient (BNVA) | payer MEDICARE, SELFPAY | PROVIDERS: PCP Family Medicine; Visit Provider Family Medicine ==

== ENCOUNTER 2024-10-29 07:49 | Outpatient (AMB) | payer MEDICARE, SELFPAY ==
[2024-10-29 07:51] VITALS: BMI 47.1
--- NOTE | 2024-10-29 07:51 | A.OFFVIS_ITS ---
Vital Signs 10/29/24 07:51 Height 5 ft 7 in Weight 301 lb BMI 47.1 Intake Visit Reasons: Bilateral knee pains Intake Note: Dennys is a 69 year old male who presents with complaints of bilateral knee pains. He describes his pains as sharp in nature. He has had cortisone injections which gave him minimal relief. He has also had Durolane viscosupplementation injections which gave him fairly good relief. He has tried Tylenol and meloxicam which gave him only mild relief. At this point his bilateral knee pains are interfering with his activities of daily living and his ability to sleep well through the night. He wishes to hold off on total knee replacement surgery for as long as possible. Allergies Iayrtvd-VCK-WdH Reductase Inhibitor Allergy (Severe, Verified 10/29/24 07:51) unable to walk Medication List - Last Reconciled 10/29/24 by Tyler Ramirez MD acetaminophen 325 mg PO Q4H PRN aspirin 81 mg PO DAILY bempedoic acid (Nexletol) 180 mg PO DAILY 90 days carvedilol 12.5 mg PO BID clopidogrel 75 mg PO DAILY 90 days diclofenac sodium 1% 2 grams topical BID 30 days ezetimibe 10 mg PO DAILY 90 days furosemide 20 mg PO DAILY PRN 90 days lisinopril 40 mg PO DAILY 90 days meloxicam 15 mg PO DAILY PRN 3 months [facility] Medical History (Updated 04/24/24 @ 08:47 by Tyler Ramirez MD) Osteoarthritis of left knee Aortic stenosis High blood pressure High cholesterol Surgical History S/P triple vessel bypass S/P AVR (aortic valve replacement) History of tooth extraction History of cataract surgery Family History Father Heart attack Paternal Grandfather Heart attack Mother Cancer Brother Cancer Other Substance use disorder Social History Housing: House Alcohol intake: never Patient Tobacco Use Status: Never used Tobacco e-Cigarette/Vaping Use: Never Used Second Hand Smoke Exposure: No service: No Current occupational status: retired Current occupational exposures/hazards: No Cognitive needs: No Hearing needs: No Vision needs: Yes Physical Exam Vital Signs: BMI result Body Mass Index 47.1 Const Other: Well-nourished well-developed very friendly male awake alert and oriented x3 in no acute distress Extrem Other: Bilateral lower extremity examination shows good capillary refill, no skin lesions noted, normal sensation light touch Bilateral knee examination shows minimal effusions, palpable crepitus with range of motion, pain with range of motion, no instability Results Reviewed Results Reviewed: X-rays of the patient's bilateral knee show joint space narrowing, subchondral sclerosis, no acute bony abnormalities Assessment & Plan Assessment & Plan (1) Osteoarthritis of right knee: Code(s): M17.11 - Unilateral primary osteoarthritis, right knee Category: Medical (2) Osteoarthritis of left knee: Code(s): M17.12 - Unilateral primary osteoarthritis, left knee Category: Medical Plan Mr. Eduardo presents with bilateral knee pains due to osteoarthritis. I had a lengthy discussion with the patient regarding the treatment options. He wishes to hold off on surgery for as long as possible. I agree with this plan. I will see whether or not the patient's insurance company will cover a another set of Durolane viscosupplementation injections. I will see him back once the injections are available. Feel free to call me at any time should questions regarding his orthopedic management arise. I spent 20 minutes in reviewing the patient's records and imaging studies, seeing the patient and documenting in the medical record. Medications: Refilled meloxicam 15 mg PO DAILY 3 months PRN 90 tabs 2RF pain Coding Level of Care Code Est Pt Level 3 (49226) Complex EM visit Add On G2211 Diagnoses Osteoarthritis of right knee M17.11 Osteoarthritis of left knee M17.12
--- OUTSIDE RECORDS SUMMARY | 2024-10-29 07:53 | XMS_ITS | Clinical Summary ---
Author Organization [facility] Facility Address [address] [place] [id number] Care Team Providers Care Air Conditioning Manager Name Role Phone Unavailable Primary Care Provider [...] Pneumococcal Vaccine: 65+ Ye ars (1 of - PCV) 2020 Influenza Vaccine (Season Ended) 2025 Hepatitis B Vaccine Aged Out No longe r eligible based on patient's age to complete this topic Insurance MEDICARE [facility] MEDICARE [facility]
== END 2024-10-29 07:58 | disposition home or self-care (01) ==
LOC: HO.HOS 07:50
PROVIDERS: PCP Family Medicine; Visit Provider Orthopaedic Surgery
DX: M17.0 Bilateral primary osteoarthritis of knee (principal)
CPT/HCPCS: 99213; G2211

== ENCOUNTER → 2024-10-29 07:49 | Outpatient (BNVA) | payer MEDICARE, SELFPAY | PROVIDERS: PCP Family Medicine; Visit Provider Orthopaedic Surgery | DX: M17.0 Bilateral primary osteoarthritis of knee (principal) | CPT/HCPCS: 99212 ==

== ENCOUNTER 2024-12-03 08:35 | Outpatient (AMB) | payer MEDICARE, SELFPAY ==
--- NOTE | 2024-12-03 08:38 | MHC.PC.OV ---
Vital Signs 12/03/24 08:45 Height 5 ft 7 in Weight 290 lb BMI 45.4 BP 128/82 Blood Pressure Location Lt brachial Position Sitting Respiration 15 Pulse 61 Pulse Source Pulse Oximeter Temp 98.0 F Temp Source Temporal Artery Scan Pulse Oximetry (%) 97 Oxygen Delivery Method Room Air Intake Visit Reasons: f/u HTN, chronic conditions Intake Note: Dennys presents in the office today for a follow up. Allergies Quaqoyc-NKW-MbJ Reductase Inhibitor Allergy (Severe, Verified 12/03/24 08:41) unable to walk Medication List - Last Reconciled 12/03/24 by Mckinley Stanley MD acetaminophen 325 mg PO Q4H PRN aspirin 81 mg PO DAILY bempedoic acid (Nexletol) 180 mg PO DAILY 90 days carvedilol 12.5 mg PO BID diclofenac sodium 1% 2 grams topical BID 30 days ezetimibe 10 mg PO DAILY 90 days furosemide 20 mg PO DAILY PRN 90 days lisinopril 40 mg PO DAILY 90 days meloxicam 15 mg PO DAILY PRN 3 months Tobacco use date assessed: 12/03/24 Fall risk assessment: No Falls in past year Last assessed Fall Risk: 12/03/24 Dental Screening Dental Screen Date: 12/03/24 Did you have a dental visit in the last 12 months?: Yes Did you have a dental problem in the last 6 months where you did not have access to dental care?: No Was dental information given to patient?: Patient has dentist HPI f/u HTN, chronic conditions HPI Details 69 y/o male presents to f/u HTN, chronic conditions. Hx of HLD, CAD. Patient has been unable to tolerate any statins but is tolerating Zetia and Bempadoic acid. BP today 128/82, 61p. He is on lisinopril 40mg, carvedilol 12.5mg b.i.d. Had been following up with orthopedics for his knees. Hx of pre-diabetes. HPI Comments History of Present Illness Details Documentation assistance for Mckinley Stanley MD, was provided by Wm West,? Sanding Machine Tender on 12/03/2024 at 9:13 AM EST. I, Dr. Stanley, have read, observed, and verified documentation. ?? [facility] Medical History (Updated 04/24/24 @ 08:47 by Tyler Ramirez MD) Osteoarthritis of left knee Aortic stenosis High blood pressure High cholesterol Surgical History S/P triple vessel bypass S/P AVR (aortic valve replacement) History of tooth extraction History of cataract surgery Family History Father Heart attack Paternal Grandfather Heart attack Mother Cancer Brother Cancer Other Substance use disorder Social History (Updated 12/03/24 @ 08:43 by Amanda Yo MA) Housing: House Alcohol intake: never Patient Tobacco Use Status: Never used Tobacco e-Cigarette/Vaping Use: Never Used Second Hand Smoke Exposure: No Use of substances other than those prescribed or required for medical reasons: No service: No Current occupational status: retired Current occupational exposures/hazards: No Cognitive needs: No Hearing needs: No Vision needs: Yes Questionnaire PHQ-9 Over the last 2 weeks, how often have you been bothered by any of the following problems? 1. Little interest or pleasure in doing things: not at all 2. Feeling down, depressed, or hopeless: not at all 3. Trouble falling or staying asleep, or sleeping too much: not at all 4. Feeling tired or having little energy: not at all 5. Poor appetite or overeating: not at all 6. Feeling bad about yourself - or that you are a failure or have let yourself or your family down: not at all 7. Trouble concentrating on things, such as reading the newspaper or watching television: not at all 8. Moving or speaking so slowly that other people could have noticed. Or the opposite - being so fidgety or restless that you have been moving around a lot more than usual: not at all 9. Thoughts that you would be better off or of hurting yourself in some way: not at all Total score: 0 Depression Screening Interpretation: Negative Depression Screening Done: Yes 34027 - PHQ-9 Billing: Patient declined-do not bill Source: Developed by Drs. Dennys Brady, Wanda Gupta, Andres Dorman and colleagues, with an educational giesle from [employer]. Thrive Questionnaire Date Thrive assessed: 12/03/24 I am a: Patient What is your living situation today?: I have a steady place to live Within the past 12 months, did the food you bought not last and you didn't have the money to get more?: Never true Within the past 12 months, did you worry whether your food would run out before you got money to buy more?: Never true Do you have trouble paying for medicines?: No Do you have trouble getting transportation to medical appointments?: No Do you have trouble paying your heating and electricity bill?: No Do you have trouble taking care of your child, family member or friend?: No Do you have trouble with day-to-day activities such as bathing, preparing meals, shopping, managing finances, etc.?: No Are you currently unemployed and looking for a job?: No Are you interested in more education?: No Please select the resources that you would like help with: None Currently or been in a relationship where the following occur: No concerns reported THRIVE Score: 0 AUDIT C Alcohol Use Questionnaire (AUDIT-C) 1. How often do you have a drink containing alcohol?: Never Total Score: 0 CARMELINA-7 AMB Questionnaire CARMELINA-7 Date CARMELINA - 7 assessed: 02/07/24 Source: Developed by Drs. Dennys Brady, Wanda Gupta, Andres Dorman and colleagues, with an educational gisele from [employer]. Review of Systems Const Denies chills, Denies fatigue, Denies fever(s), Denies headache(s) and Denies weakness ENT Denies dizziness and Denies headache(s) Card Denies dyspnea Resp Denies cough, Denies dyspnea, Denies wheezing and Denies other (shortness of breath) Musc Denies numbness and Denies tingling Neuro Denies dizziness, Denies headache(s), Denies numbness, Denies tingling and Denies weakness Psych Denies anxiety and Denies depression Endo Denies fatigue Aller/Immun Denies wheezing Physical exam (Primary Care) Vital Signs: Last Vital Signs Temp 98.0 F 12/03/24 08:45 Pulse 61 12/03/24 08:45 Resp 15 12/03/24 08:45 BP 128/82 12/03/24 08:45 Pulse Ox 97 12/03/24 08:45 Oxygen Delivery Method Room Air 12/03/24 08:45 BMI result Body Mass Index 45.4 Tobacco/Smoking Status: Tobacco use Status Tobacco use date assessed 12/03/24 12/03/24 08:43 Patient Tobacco Use Status Never used Tobacco 12/03/24 08:43 e-Cigarette/Vaping Use Never Used 12/03/24 08:43 PHQ-9: PHQ-9 Score PHQ-9: Total score 0 12/03/24 09:17 Depression Screening Interpretation: Negative Thrive Assessment: Date of Thrive Assessment Date Thrive assessed 12/03/24 12/03/24 08:48 Currently or been in a relationship where the following occur: No concerns reported Const General: well developed; No acute distress Nutritional Appearance: well nourished and obese morbidly obese Orientation/consciousness: patient oriented x3 HENMT Head: Yes normocephalic and Yes atraumatic Eyes General: appearance normal, both eyes and all related structures Pupils: Equal, round and reactive pupils present EOM: EOMs intact bilaterally Resp Effort & Inspection: normal respiratory effort Auscultation: clear to auscultation bilaterally Cardio Rate: regular rate Rhythm: regular rhythm Heart sounds: S1 normal heart sound present, S2 normal heart sound present, no gallops, no murmurs and no rubs Neuro General: patient oriented x3 and gait normal Cranial nerves: Yes Equal, round and reactive pupils present Psych Affect: normal affect Coding Level of Care Code Est Pt Level 4 (15978) Diagnoses Essential hypertension I10 Hyperlipidemia E78.5 Coronary artery disease I25.10 Arthritis of both knees M17.0 Pre-diabetes R73.03 Assessment & Plan Assessment & Plan (1) Essential hypertension: Code(s): I10 - Essential (primary) hypertension Category: Medical Plan: Blood?pressure?is?fairly?well?controlled.??Goal?is?less?than?130/80 No?change?to?current?medication?regimen Will?continue?to?monitor (2) Hyperlipidemia: Code(s): E78.5 - Hyperlipidemia, unspecified Category: Medical Plan: LDL?has?been significantly?above?his?goal?of?less?than?70?despite?Zetia?and?bempedoic?acid. He?has?not?tolerated?statins Followed?by?cardiology?for?coronary?artery?disease?with?CABG?and?aortic?valve?replacement. Due?to?recheck?his?lipids?which?he?can?get?done?today. Encouraged?a?diet?lower?in?saturated?fats?and?cholesterol.??Encouraged?ongoing?weight?loss Encouraged?exercise?as?tolerated (3) Coronary artery disease: Code(s): I25.10 - Atherosclerotic heart disease of [place] coronary artery without angina pectoris Category: Medical Plan: Stable Follow-up?with?Cardiology?as?recommended (4) Arthritis of both knees: Code(s): M17.0 - Bilateral primary osteoarthritis of knee Category: Medical Plan: Followed?by??James and?undergoing?Durolane?injections?which?he?says?are?helping?somewhat. Continue?Durolane Continue?meloxicam Follow-up?with?ortho?as?recommended (5) Pre-diabetes: Code(s): R73.03 - Prediabetes Category: Medical Plan: A1c?has?improved?from?6.2%?to?6.0%?with?his?weight?loss. Still?in?pre?diabetes?range?but?improving Continue?to?work?at?a?diet?low?in?sugars?and?starches.??Continue?to?work?at?weight?loss?and?exercise?as?tolerated Will?continue?to?monitor?periodically Orders: Orders Comprehensive [place]. Panel Fast Today I25.10 - Atherosclerotic heart disease of [place] coronary artery without angina pectoris, Z00.00 - Encounter for general adult medical examination without abnormal findings Lipid Panel Today I25.10 - Atherosclerotic heart disease of [place] coronary artery without angina pectoris, Z00.00 - Encounter for general adult medical examination without abnormal findings
[2024-12-03 08:45] VITALS: BP 128/82; PULSE 61; RESP 15; TEMP 36.7; O2SAT 97; BMI 45.4
--- OUTSIDE RECORDS SUMMARY | 2024-12-03 08:53 | XMS_ITS | Clinical Summary ---
Author Organization [facility] Facility Address [address] [place] [id number] Care Team Providers Care Women'S Basketball Coach Name Role Phone Unavailable Primary Care Provider [...] Colorectal Cancer Screening: Sigmoidoscopy 2004 Pneumococcal Vaccine: 50+ Ye ars (1 of - PCV) 2005 Influenza Vaccine (Season Ended) 2025 Hepatitis B Vaccine Aged Out No longe r eligible based on patient's age to complete this topic Insurance Medicare [facility] Medicare [facility]
== END 2024-12-03 09:21 | disposition home or self-care (01) ==
LOC: HO.HMCFM 08:36
PROVIDERS: PCP Family Medicine; Visit Provider Family Medicine
DX: R73.03 Prediabetes (principal)

== ENCOUNTER → 2024-12-03 08:35 | Outpatient (BNVA) | payer MEDICARE, SELFPAY | PROVIDERS: PCP Family Medicine; Visit Provider Family Medicine | DX: Z13.89 Encounter for screening for other disorder (principal) | CPT/HCPCS: 83036; 99212 ==

== ENCOUNTER 2024-12-03 09:50 | Outpatient (REF) | payer MEDICARE, SELFPAY ==
--- OUTSIDE RECORDS SUMMARY | 2024-12-03 10:47 | XMS_ITS | Clinical Summary ---
Author Organization [facility] Facility Address [address] [place] [address] Care Team Providers Care Turbo Operator Name Role Phone Unavailable Primary Care Provider [...] age to complete this topic Insurance Medicare [facility] Medicare [facility]
[2024-12-03 12:01] LABS: Alanine Aminotransferase 52 U/L (0-40); Albumin Level 4.1 g/dL (3.5-5.0); Alkaline Phosphatase 40 U/L (39-117); Anion Gap 12 (12-20); Aspartate Amino Transferase 38 U/L (5-37); Bilirubin Total 0.5 mg/dL (0.0-1.0); Blood Urea Nitrogen 22 mg/dL (9-16); Calcium 8.9 mg/dL (8.4-10.2); Carbon Dioxide 28 mmol/L (22-29); Chloride 107 mmol/L (96-108); Cholesterol 155 mg/dL (<200); Estimated Glomerular Filt Rate > 60; Glucose Fasting 113 mg/dL (60-99); HDL Cholesterol 29 mg/dL (>40); LDL Cholesterol Calculated 99 mg/dL (<100); Potassium 3.6 mmol/L (3.3-5.1); Sodium 143 mmol/L (135-145); Total Protein 6.8 g/dL (6.5-8.0); Triglycerides 138 mg/dL (<150)
== END 2024-12-03 09:51 | disposition home or self-care (01) ==
LOC: HO.WFDLDS 09:50
PROVIDERS: Visit Provider Family Medicine
DX: Z00.00 Encounter for general adult medical examination without abnormal findings (principal); I25.10 Atherosclerotic heart disease of native coronary artery without angina pectoris; R73.03 Prediabetes
CPT/HCPCS: 36415; 80053; 80061; 83036; 99212

== ENCOUNTER 2025-01-20 10:07 | Outpatient (AMB) | payer MEDICARE, SELFPAY ==
--- NOTE | 2025-01-20 10:16 | MHC.OFFVIS ---
Vital Signs 01/20/25 10:17 Height 5 ft 7 in Weight 290 lb BMI 45.4 Intake Visit Reasons: Inj-Moe Knee Durolane Inj Intake Note: Dennys is a 69 year old male who presents today for bilateral knee Durolane injections. The patient describes his knee pains as sharp in nature. He has tried Tylenol and anti-inflammatory medicines which gave him minimal relief. He has also had cortisone injections which gave him no relief. He wishes to hold off on surgery if at all possible. Allergies Sazjgxu-BOQ-HjR Reductase Inhibitor Allergy (Severe, Verified 01/20/25 10:17) unable to walk Medication List - Last Reconciled 01/20/25 by Tyler Ramirez MD acetaminophen 325 mg PO Q4H PRN aspirin 81 mg PO DAILY bempedoic acid (Nexletol) 180 mg PO DAILY 90 days carvedilol 12.5 mg PO BID diclofenac sodium 1% 2 grams topical BID 30 days ezetimibe 10 mg PO DAILY 90 days furosemide 20 mg PO DAILY PRN 90 days lisinopril 40 mg PO DAILY 90 days meloxicam 15 mg PO DAILY PRN 3 months [facility] Medical History (Updated 04/24/24 @ 08:47 by Tyler Ramirez MD) Osteoarthritis of left knee Aortic stenosis High blood pressure High cholesterol Surgical History S/P triple vessel bypass S/P AVR (aortic valve replacement) History of tooth extraction History of cataract surgery Family History Father Heart attack Paternal Grandfather Heart attack Mother Cancer Brother Cancer Other Substance use disorder Social History (Updated 12/03/24 @ 08:43 by Amanda Yo MA) Housing: House Alcohol intake: never Patient Tobacco Use Status: Never used Tobacco e-Cigarette/Vaping Use: Never Used Second Hand Smoke Exposure: No service: No Current occupational status: retired Current occupational exposures/hazards: No Cognitive needs: No Hearing needs: No Vision needs: Yes Physical Exam Vital Signs: BMI result Body Mass Index 45.4 Const Other: Well-nourished well-developed very friendly male awake alert and oriented x3 in no acute distress Extrem Other: Bilateral knee examination shows minimal effusions, palpable crepitus with range of motion, pain with range of motion, no instability Office Procedures AMB Joint Injection/Aspiration Joint Injection/Aspiration Primary Site: left knee Prep: site was prepped using aseptic technique Injected: 60 mg of (Durolane viscosupplementation) and 1% plain lidocaine Procedure: The patient tolerated the procedure well Coding 88243 - Large joint Procedure code (CPT) selection complete AMB Joint Injection/Aspiration Joint Injection/Aspiration Primary Site: right knee Prep: site was prepped using aseptic technique Injected: 60 mg of (Durolane viscosupplementation) and 1% plain lidocaine Procedure: The patient tolerated the procedure well Coding 65725 - Large joint Procedure code (CPT) selection complete Results Reviewed Results Reviewed: X-rays of the patient's bilateral knees taken previously show joint space narrowing, subchondral sclerosis, no acute bony abnormalities Assessment & Plan Assessment & Plan (1) Osteoarthritis of left knee: Code(s): M17.12 - Unilateral primary osteoarthritis, left knee Category: Medical (2) Osteoarthritis of right knee: Code(s): M17.11 - Unilateral primary osteoarthritis, right knee Category: Medical Plan Mr. Bard Zimmer presents with bilateral knee pains due to osteoarthritis. The risks and benefits of bilateral knee Durolane viscosupplementation injections were discussed at length with the patient. The patient wished to proceed. He tolerated the injections well. He will continue with his home exercise program. He will contact me prior to his follow-up appointment in 3 months should any questions or concerns arise. Feel free to call me at any time should questions regarding his orthopedic management arise. I spent 21 minutes in reviewing the patient's records and imaging studies, seeing the patient and documenting in the medical record. Orders: Orders AMB Joint Injection/Aspiration 01/20/25 M17.12 - Unilateral primary osteoarthritis, left knee AMB Joint Injection/Aspiration 01/20/25 M17.11 - Unilateral primary osteoarthritis, right knee Coding Level of Care Code Est Pt Level 3 (86119) Complex EM visit Add On G2211 Diagnoses Osteoarthritis of left knee M17.12 Osteoarthritis of right knee M17.11 CPT Codes Coding - 22409 Large joint: 47128 - Large joint ([id number]) Coding - 86071 Large joint: 14465 - Large joint ([id number])
[2025-01-20 10:17] VITALS: BMI 45.4
--- OUTSIDE RECORDS SUMMARY | 2025-01-20 11:10 | XMS_ITS | Clinical Summary ---
Author Organization [facility] Facility Address [address] [place] [address] Care Team Providers Care Enlisted Advisor Name Role Phone Unavailable Primary Care Provider [...] age to complete this topic Insurance Medicare [facility] Medicare [facility]
== END 2025-01-20 10:39 | disposition home or self-care (01) ==
LOC: HO.HOS 10:08
PROVIDERS: PCP Family Medicine; Visit Provider Orthopaedic Surgery
DX: M17.0 Bilateral primary osteoarthritis of knee (principal)
CPT/HCPCS: 20610; 99213

== ENCOUNTER → 2025-01-20 10:07 | Outpatient (BNVA) | payer MEDICARE, SELFPAY | PROVIDERS: PCP Family Medicine; Visit Provider Orthopaedic Surgery | DX: M17.0 Bilateral primary osteoarthritis of knee (principal) | CPT/HCPCS: 20610; 99212; J2003; J7318 ==

== ENCOUNTER 2025-04-07 08:22 | Outpatient (AMB) | payer MEDICARE, SELFPAY ==
--- NOTE | 2025-04-07 08:32 | A.OFFPC_ITS ---
Vital Signs 04/07/25 08:36 Height 5 ft 7 in Weight 282 lb 2 oz BMI 44.2 BP 138/82 Blood Pressure Location Rt brachial Position Sitting Pulse 59 Pulse Source Pulse Oximeter Temp 97.2 F Temp Source Temporal Artery Scan Pulse Oximetry (%) 94 Oxygen Delivery Method Room Air Intake Visit Reasons: f/u HTN, HLD - see comments Intake Note: Dennys presents in the office today for a follow up to hypertension and cholesterol. Allergies Snsaogz-WPQ-DcY Reductase Inhibitor Allergy (Severe, Verified 04/07/25 08:34) unable to walk Medication List - Last Reconciled 04/07/25 by Mckinley Stanley MD acetaminophen 325 mg PO Q4H PRN aspirin 81 mg PO DAILY bempedoic acid (Nexletol) 180 mg PO DAILY 90 days carvedilol 12.5 mg PO BID diclofenac sodium 1% 2 grams topical BID 30 days ezetimibe 10 mg PO DAILY 90 days furosemide 20 mg PO DAILY PRN 90 days lisinopril 40 mg PO DAILY 90 days meloxicam 15 mg PO DAILY PRN 3 months Tobacco use date assessed: 04/07/25 Dental Screening Dental Screen Date: 04/07/25 Did you have a dental visit in the last 12 months?: Yes Did you have a dental problem in the last 6 months where you did not have access to dental care?: No Was dental information given to patient?: Patient has dentist HPI f/u HTN, HLD - see comments HPI Details 69 y/o male presents to f/u HTN, HLD. Blood pressure today 138/82, 59p. He is on carvedilol 12.5mg b.i.d. Labs drawn 02/20. Reviewed labs with pt. Elevated iver AST 38, ALT 52. Triglycerides 138. TC 155. LDL 99. HDL low at 29. Hx of pre-diabetes. A1c today 04/07/25 6.3%. Has complaints of erectile dysfunction. HPI Comments History of Present Illness Details Documentation assistance for Mckinley Stanley MD, was provided by Wm West,? Gyroscope Repairer on at 8:50 AM EST. I, Dr. Stanley, have read, observed, and verified documentation. [facility] Medical History (Updated 04/07/25 @ 09:06 by Wm West) Osteoarthritis of left knee Aortic stenosis High blood pressure High cholesterol Surgical History S/P triple vessel bypass S/P AVR (aortic valve replacement) History of tooth extraction History of cataract surgery Family History Father Heart attack Paternal Grandfather Heart attack Mother Cancer Brother Cancer Other Substance use disorder Social History (Updated 04/07/25 @ 08:36 by Amanda Yo MA) Housing: House Alcohol intake: never Patient Tobacco Use Status: Never used Tobacco e-Cigarette/Vaping Use: Never Used Second Hand Smoke Exposure: No service: No Current occupational status: retired Current occupational exposures/hazards: No Cognitive needs: No Hearing needs: No Vision needs: Yes Questionnaire Thrive Questionnaire Date Thrive assessed: 08/05/24 I am a: Patient What is your living situation today?: I have a steady place to live Within the past 12 months, did the food you bought not last and you didn't have the money to get more?: Never true Within the past 12 months, did you worry whether your food would run out before you got money to buy more?: Never true Do you have trouble paying for medicines?: No Do you have trouble getting transportation to medical appointments?: No Do you have trouble paying your heating and electricity bill?: No Do you have trouble taking care of your child, family member or friend?: No Do you have trouble with day-to-day activities such as bathing, preparing meals, shopping, managing finances, etc.?: No Are you currently unemployed and looking for a job?: No Are you interested in more education?: No Please select the resources that you would like help with: None Currently or been in a relationship where the following occur: No concerns reported THRIVE Score: 0 CARMELINA-7 AMB Questionnaire CARMELINA-7 Date CARMELINA - 7 assessed: 02/07/24 Source: Developed by Drs. Dennys Brady, Wanda Gupta, Andres Dorman and colleagues, with an educational gisele from [employer]. Review of Systems Const Denies chills, Denies fatigue, Denies fever(s), Denies headache(s) and Denies weakness ENT Denies dizziness and Denies headache(s) Card Denies dyspnea Resp Denies cough, Denies dyspnea, Denies wheezing and Denies other (shortness of breath) Musc Denies numbness and Denies tingling Neuro Denies dizziness, Denies headache(s), Denies numbness, Denies tingling and Denies weakness Psych Denies anxiety and Denies depression Endo Denies fatigue Aller/Immun Denies wheezing Physical exam (Primary Care) Vital Signs: Last Vital Signs Temp 97.2 F 04/07/25 08:36 Pulse 59 04/07/25 08:36 BP 138/82 04/07/25 08:36 Pulse Ox 94 04/07/25 08:36 Oxygen Delivery Method Room Air 04/07/25 08:36 BMI result Body Mass Index 44.2 Tobacco/Smoking Status: Tobacco use Status Tobacco use date assessed 04/07/25 04/07/25 08:40 Patient Tobacco Use Status Never used Tobacco 04/07/25 08:36 e-Cigarette/Vaping Use Never Used 04/07/25 08:36 Thrive Assessment: Date of Thrive Assessment Date Thrive assessed 08/05/24 04/07/25 08:33 Currently or been in a relationship where the following occur: No concerns reported Const General: well developed; No acute distress Nutritional Appearance: well nourished and obese morbidly obese Orientation/consciousness: patient oriented x3 [facility] Head: Yes normocephalic and Yes atraumatic Eyes General: appearance normal, both eyes and all related structures Pupils: Equal, round and reactive pupils present EOM: EOMs intact bilaterally Resp Effort & Inspection: normal respiratory effort Auscultation: clear to auscultation bilaterally Cardio Rate: regular rate Rhythm: regular rhythm Heart sounds: S1 normal heart sound present, S2 normal heart sound present, no gallops, no murmurs and no rubs Neuro General: patient oriented x3 and gait normal Cranial nerves: Yes Equal, round and reactive pupils present Psych Affect: normal affect Coding Level of Care Code Est Pt Level 4 (78638) Diagnoses Essential hypertension I10 Hyperlipidemia E78.5 Coronary artery disease I25.10 Pre-diabetes R73.03 Erectile dysfunction N52.9 Assessment & Plan Assessment & Plan (1) Essential hypertension: Code(s): I10 - Essential (primary) hypertension Category: Medical Plan: Blood pressure is above goal of less than 130/80 Continue carvedilol and lisinopril Will add a small dose of hydrochlorothiazide Check renal function (2) Hyperlipidemia: Code(s): E78.5 - Hyperlipidemia, unspecified Category: Medical Plan: Lipids significantly improved but LDL still above goal of less than 70 Continue bempedoic acid and Zetia Follow-up with Cardiology as recommended (3) Coronary artery disease: Code(s): I25.10 - Atherosclerotic heart disease of [place] coronary artery without angina pectoris Category: Medical Plan: Stable Follow-up with Cardiology (4) Pre-diabetes: Code(s): R73.03 - Prediabetes Category: Medical Plan: A1c climbed to 6.3%. Still in pre diabetes range but I encouraged him to work at a diet lower in sugars and starches Work at exercise and weight loss as tolerated (5) Erectile dysfunction: Code(s): N52.9 - Male erectile dysfunction, unspecified Category: Medical Plan: Has used Cialis in the past. Will give him another script If not improving, adjust dose or change medication and refer to Urology Orders: Orders AMB Hemoglobin A1c Today R73.03 - Prediabetes Comprehensive Met. Panel Today I25.10 - Atherosclerotic heart disease of [place] coronary artery without angina pectoris Complete Blood Count Auto Diff Today I25.10 - Atherosclerotic heart disease of [place] coronary artery without angina pectoris, Z00.00 - Encounter for general adult medical examination without abnormal findings Medications: New hydrochlorothiazide 12.5 mg PO QAM 90 tabs 3RF 90 days tadalafil (Cialis) administer approximately 30min before sexual activity; do not use more than 1 dose per 24hrs 10 mg PO DAILY PRN 4 tabs 3RF sexual activity 30 days
[2025-04-07 08:36] VITALS: BP 138/82; PULSE 59; TEMP 36.2; O2SAT 94; BMI 44.2
--- OUTSIDE RECORDS SUMMARY | 2025-04-07 09:23 | XMS_ITS | Clinical Summary ---
Author Organization [facility] Facility Address [address] [place] [id number] Care Team Providers Care Arterial Embalmer Name Role Phone Unavailable Primary Care Provider [...] Pneumococcal Vaccine: 50+ Ye ars (1 of 1 - PCV) 2005 Influenza Vaccine (#1) 2025 Hepatitis B Vaccine Aged Out No longe r eligible based on patient's age to complete this topic Insurance Medicare [facility] Medicare [facility]
== END 2025-04-07 09:13 | disposition home or self-care (01) ==
LOC: HO.HMCFM 08:23
PROVIDERS: PCP Family Medicine; Visit Provider Family Medicine
DX: I10 Essential (primary) hypertension (principal); E78.5 Hyperlipidemia, unspecified; I25.10 Atherosclerotic heart disease of native coronary artery without angina pectoris; R73.03 Prediabetes; N52.9 Male erectile dysfunction, unspecified

== ENCOUNTER → 2025-04-07 08:22 | Outpatient (BNVA) | payer MEDICARE, SELFPAY | PROVIDERS: PCP Family Medicine; Visit Provider Family Medicine | DX: I10 Essential (primary) hypertension (principal); E78.5 Hyperlipidemia, unspecified; R73.03 Prediabetes; I25.10 Atherosclerotic heart disease of native coronary artery without angina pectoris; N52.9 Male erectile dysfunction, unspecified | CPT/HCPCS: 83036; 99212 ==

== ENCOUNTER 2025-04-22 08:22 | Outpatient (AMB) | payer MEDICARE, SELFPAY ==
--- NOTE | 2025-04-22 08:30 | A.OFFVIS_ITS ---
Vital Signs 04/22/25 08:32 Height 5 ft 7 in Weight 277 lb BMI 43.4 Intake Visit Reasons: Bilateral knee pain Intake Note: Dennys is a 69 year old male who presents with complaints of bilateral knee pains. He describes his pains as sharp in nature. He has tried Tylenol and anti-inflammatory medicines as well as diclofenac topical gel which gave him minimal relief. He has failed the last 3 months of conservative treatment. He has had cortisone injections in the past which gave him no relief. He has also had Durolane injections which gave him fairly good relief. At this point his knee pains are interfering with his activities of daily living and his ability to sleep well through the night. He wishes to hold off on surgery if at all possible. The patient also reports bilateral hand pains, left greater than right. He has not been seen by a hand specialist. Allergies Thmjqny-HWB-TyX Reductase Inhibitor Allergy (Severe, Verified 04/22/25 08:32) unable to walk Medication List - Last Reconciled 04/22/25 by Tyler Ramirez MD acetaminophen 325 mg PO Q4H PRN aspirin 81 mg PO DAILY bempedoic acid (Nexletol) 180 mg PO DAILY 90 days carvedilol 12.5 mg PO BID diclofenac sodium 1% 2 grams topical BID 30 days ezetimibe 10 mg PO DAILY 90 days furosemide 20 mg PO DAILY PRN 90 days hydrochlorothiazide 12.5 mg PO QAM 90 days lisinopril 40 mg PO DAILY 90 days meloxicam 15 mg PO DAILY PRN 3 months tadalafil (Cialis) 10 mg PO DAILY PRN 30 days [facility] Medical History (Updated 04/07/25 @ 09:06 by Wm West) Osteoarthritis of left knee Aortic stenosis High blood pressure High cholesterol Surgical History S/P triple vessel bypass S/P AVR (aortic valve replacement) History of tooth extraction History of cataract surgery Family History Father Heart attack Paternal Grandfather Heart attack Mother Cancer Brother Cancer Other Substance use disorder Social History (Updated 04/07/25 @ 08:36 by Amanda Yo MA) Housing: House Alcohol intake: never Patient Tobacco Use Status: Never used Tobacco e-Cigarette/Vaping Use: Never Used Second Hand Smoke Exposure: No service: No Current occupational status: retired Current occupational exposures/hazards: No Cognitive needs: No Hearing needs: No Vision needs: Yes Physical Exam Vital Signs: BMI result Body Mass Index 43.4 Const Other: Well-nourished well-developed very friendly male awake alert and oriented x3 in no acute distress Extrem Other: Bilateral knee examination shows minimal effusions, palpable crepitus with range of motion, pain with range of motion, no instability Results Reviewed Results Reviewed: X-rays of the patient's bilateral knees taken previously show joint space narrowing, subchondral sclerosis, no acute bony abnormalities Assessment & Plan Assessment & Plan (1) Pain in both knees: Code(s): M25.561 - Pain in right knee; M25.562 - Pain in left knee (2) Osteoarthritis of left knee: Code(s): M17.12 - Unilateral primary osteoarthritis, left knee Category: Medical (3) Osteoarthritis of right knee: Code(s): M17.11 - Unilateral primary osteoarthritis, right knee Category: Medical Plan Mr. Bard Johnson presents with bilateral knee pains due to osteoarthritis. I had a lengthy discussion with the patient regarding the treatment options. He wishes to hold off on surgery if at all possible. I agree with this plan. I will see if his insurance company will cover a another Durolane injection for both of his knees. I will see him back once the injections are available. Feel free to call me at any time should questions regarding his orthopedic management arise. I spent 22 minutes in reviewing the patient's records and imaging studies, seeing the patient and documenting in the medical record. Coding Level of Care Code Est Pt Level 3 (95589) Complex EM visit Add On G2211 Diagnoses Pain in both knees M25.561; M25.562 Osteoarthritis of left knee M17.12 Osteoarthritis of right knee M17.11
[2025-04-22 08:32] VITALS: BMI 43.4
--- OUTSIDE RECORDS SUMMARY | 2025-04-22 09:12 | XMS_ITS | Clinical Summary ---
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
== END 2025-04-22 08:41 | disposition home or self-care (01) ==
LOC: HO.HOS 08:23
PROVIDERS: PCP Family Medicine; Visit Provider Orthopaedic Surgery
DX: M17.0 Bilateral primary osteoarthritis of knee (principal)
CPT/HCPCS: 99213; G2211

== ENCOUNTER → 2025-04-22 08:22 | Outpatient (BNVA) | payer MEDICARE, SELFPAY | PROVIDERS: PCP Family Medicine; Visit Provider Orthopaedic Surgery | DX: M25.561 Pain in right knee (principal); M25.562 Pain in left knee; M17.0 Bilateral primary osteoarthritis of knee | CPT/HCPCS: 99212 ==

== ENCOUNTER 2025-06-23 15:10 | Outpatient (REF) | payer MEDICARE, SELFPAY ==
--- NOTE | ~2025-06-23 | XR_ITS ---
EXAMINATION: X-ray bilateral knees CLINICAL INFORMATION: Bilateral knee osteoarthritis COMPARISON: X-ray 11/15/2023 TECHNIQUE: AP bilateral knees 2 views. Right knee 2 views. Left knee 2 views. FINDINGS: Right knee: Severe medial compartment arthritis. Genu varus. Lateral compartment marginal spurring. Mild-moderate patellofemoral arthritis. No visible acute fracture, dislocation or suspicious bony lesion. Small-moderate effusion. Left knee: Severe medial compartment arthritis. Genu varus. Lateral compartment marginal spurring. Mild patellofemoral arthritis. No acute fracture, dislocation or suspicious bony lesion. Small effusion. XR/XR Knee Moe 3V IMPRESSION: Right knee: Tricompartment osteoarthritis. Severe medial compartment arthritis. No acute fracture. Small-moderate effusion Left knee: Tricompartment osteoarthritis. Severe medial compartment arthritis. Small effusion. No acute fracture. Electronically signed by: Garrett Gray MD 06/24/2025 12:00 PM [facility]
--- OUTSIDE RECORDS SUMMARY | 2025-06-23 18:51 | XMS_ITS | Clinical Summary ---
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
== END 2025-06-23 15:11 | disposition home or self-care (01) ==
LOC: HO.XRAY 15:10
PROVIDERS: PCP Family Medicine; Visit Provider Orthopaedic Surgery
DX: M17.0 Bilateral primary osteoarthritis of knee (principal)
CPT/HCPCS: 73562

== ENCOUNTER → 2025-06-23 15:18 | Outpatient (BNV) | payer MEDICARE, SELFPAY | PROVIDERS: PCP Family Medicine; Visit Provider Radiology Diagnostic Ultrasound | DX: M17.0 Bilateral primary osteoarthritis of knee (principal); M25.461 Effusion, right knee; M25.462 Effusion, left knee | CPT/HCPCS: 73562 ==

== ENCOUNTER 2025-07-09 09:28 | Outpatient (REF) | payer MEDICARE, SELFPAY ==
[2025-07-09 14:56] LABS: MANUAL DIFF FLAG NO
[2025-07-09 15:03] LABS: Hematocrit 41.7 % (42.0-52.0); Hemoglobin 14.1 g/dl (14.0-18.0); Imm Gran Abs Auto 0.02 X10*3/uL (0.00-0.03); Imm Gran Pct Auto 0.3 % (0.0-0.4); Lymphocytes Absolute Auto 2.1 X10*3/uL (1.2-4.9); Mean Corpuscular HGB Conc 33.8 g/dl (31.0-36.0); Mean Corpuscular Hemoglobin 31.3 pg (27.0-33.0); Mean Corpuscular Volume 92.5 fL (80.0-98.0); NRBC Abs Auto 0.000 X10*3/uL (0.0-0.012); NRBC Pct Auto 0.0 /100WBC (0.0-0.2); Platelet Count 219 X10*3/uL (160-400); Red Blood Count 4.51 X10*6/uL (4.60-5.80); White Blood Count 7.8 X10*3/uL (4.8-10.8)
[2025-07-09 15:14] LABS: Alanine Aminotransferase 27 U/L (0-40); Albumin Level 4.5 g/dL (3.5-5.0); Alkaline Phosphatase 35 U/L (39-117); Anion Gap 11 (12-20); Aspartate Amino Transferase 37 U/L (5-37); Blood Urea Nitrogen 22 mg/dL (9-16); Calcium 9.3 mg/dL (8.4-10.2); Carbon Dioxide 30 mmol/L (22-29); Chloride 105 mmol/L (96-108); Cholesterol 159 mg/dL (<200); Estimated Glomerular Filt Rate > 60; HDL Cholesterol 32 mg/dL (>40); Potassium 4.6 mmol/L (3.3-5.1); Sodium 141 mmol/L (135-145); Total Protein 7.0 g/dL (6.5-8.0); Triglycerides 152 mg/dL (<150)
== END 2025-07-09 09:29 | disposition home or self-care (01) ==
LOC: HO.WFDLDS 09:28
PROVIDERS: PCP Family Medicine; Visit Provider Family Medicine
DX: I10 Essential (primary) hypertension (principal); I25.10 Atherosclerotic heart disease of native coronary artery without angina pectoris; R73.03 Prediabetes; E78.5 Hyperlipidemia, unspecified; I35.0 Nonrheumatic aortic (valve) stenosis; Z79.899 Other long term (current) drug therapy; Z13.31 Encounter for screening for depression; Z00.00 Encounter for general adult medical examination without abnormal findings
CPT/HCPCS: 36415; 80053; 80061; 83036; 85025; 96127; 99212

== ENCOUNTER 2025-07-09 09:28 | Outpatient (AMB) | payer MEDICARE, SELFPAY ==
--- NOTE | 2025-07-09 09:33 | A.OFFPC_ITS ---
Vital Signs 07/09/25 09:41 07/09/25 10:10 Height 5 ft 7 in Weight 270 lb 2 oz BMI 42.3 BP 148/94 H 146/72 H Blood Pressure Location Rt brachial Lt brachial Position Sitting Sitting Respiration 16 Pulse 55 Pulse Source Pulse Oximeter Temp 97.3 F Temp Source Oral Pulse Oximetry (%) 98 Oxygen Delivery Method Room Air Intake Visit Reasons: f/u pre-diabetes, HTN, HLD Intake Note: Patient present for follow up pre-diabetes, HTN, HLD. Load Mixer Required: No Accompanied by: Self / Same As Patient Allergies Xnooead-EVZ-XvK Reductase Inhibitor Allergy (Severe, Verified 07/09/25 09:40) unable to walk Medication List - Last Reconciled 07/09/25 by Mckinley Stanley MD acetaminophen 325 mg PO Q4H PRN aspirin 81 mg PO DAILY bempedoic acid (Nexletol) 180 mg PO DAILY 90 days carvedilol 12.5 mg PO BID diclofenac sodium 1% 2 grams topical BID 30 days ezetimibe 10 mg PO DAILY 90 days furosemide 20 mg PO DAILY PRN 90 days hydrochlorothiazide 12.5 mg PO QAM 90 days lisinopril 40 mg PO DAILY 90 days meloxicam 15 mg PO DAILY PRN 3 months tadalafil (Cialis) 10 mg PO DAILY PRN 30 days Tobacco use date assessed: 04/07/25 Fall risk assessment: No Falls in past year Last assessed Fall Risk: 07/09/25 Dental Screening Dental Screen Date: 04/07/25 HPI f/u pre-diabetes, HTN, HLD HPI Details 70 y/o male presents to f/u pre-diabetes , HTN, HLD. Blood pressure today 148/94, 55p. He is on lisinopril 40mg, HCTZ 12.5mg, carvedilol 12.5mg b.i.d. Hx of CAD. Pt notes blood pressure at home have been in the 110s systolic range. A1c today 07/09/25 6.2%. HPI Comments History of Present Illness Details Documentation assistance for Mckinley Stanley MD, was provided by Wm West,? Transcript Clerk on 07/09/2025 at 10:11 AM EST. I, Dr. Stanley, have read, observed, and verified documentation. FOR[facility]LY [facility], [facility] Medical History Osteoarthritis of left knee Aortic stenosis High blood pressure High cholesterol Surgical History S/P triple vessel bypass S/P AVR (aortic valve replacement) History of tooth extraction History of cataract surgery Family History Father Heart attack Paternal Grandfather Heart attack Mother Cancer Brother Cancer Other Substance use disorder Social History (Updated 07/09/25 @ 09:41 by Hugo Beckford CMA) Housing: House Alcohol intake: never Patient Tobacco Use Status: Never used Tobacco e-Cigarette/Vaping Use: Never Used Second Hand Smoke Exposure: No service: No Current occupational status: retired Current occupational exposures/hazards: No Cognitive needs: No Hearing needs: No Vision needs: Yes Questionnaire PHQ-9 Over the last 2 weeks, how often have you been bothered by any of the following problems? 1. Little interest or pleasure in doing things: not at all 2. Feeling down, depressed, or hopeless: not at all 3. Trouble falling or staying asleep, or sleeping too much: not at all 4. Feeling tired or having little energy: not at all 5. Poor appetite or overeating: not at all 6. Feeling bad about yourself - or that you are a failure or have let yourself or your family down: not at all 7. Trouble concentrating on things, such as reading the newspaper or watching television: not at all 8. Moving or speaking so slowly that other people could have noticed. Or the opposite - being so fidgety or restless that you have been moving around a lot more than usual: not at all 9. Thoughts that you would be better off or of hurting yourself in some way: not at all Total score: 0 Depression Screening Interpretation: Negative Depression Screening Done: Yes 55703 - PHQ-9 Billing: Patient declined-do not bill Source: Developed by Drs. Dennys Brady, Wanda Gupta, Andres Dorman and colleagues, with an educational gisele from [employer]. Thrive Questionnaire Date Thrive assessed: 08/05/24 I am a: Patient What is your living situation today?: I have a steady place to live Within the past 12 months, did the food you bought not last and you didn't have the money to get more?: Never true Within the past 12 months, did you worry whether your food would run out before you got money to buy more?: Never true Do you have trouble paying for medicines?: No Do you have trouble getting transportation to medical appointments?: No Do you have trouble paying your heating and electricity bill?: No Do you have trouble taking care of your child, family member or friend?: No Do you have trouble with day-to-day activities such as bathing, preparing meals, shopping, managing finances, etc.?: No Are you currently unemployed and looking for a job?: No Are you interested in more education?: No Please select the resources that you would like help with: None Currently or been in a relationship where the following occur: No concerns reported THRIVE Score: 0 AUDIT C Alcohol Use Questionnaire (AUDIT-C) 1. How often do you have a drink containing alcohol?: Never Total Score: 0 CARMELINA-7 AMB Questionnaire CARMELINA-7 Date CARMELINA - 7 assessed: 02/07/24 Source: Developed by Drs. Dennys Brady, Wanda Gupta, Andres Dorman and colleagues, with an educational gisele from [employer]. Review of Systems Const Denies chills, Denies fatigue, Denies fever(s), Denies headache(s) and Denies weakness ENT Denies dizziness and Denies headache(s) Card Denies dyspnea Resp Denies cough, Denies dyspnea, Denies wheezing and Denies other (shortness of breath) Musc Denies numbness and Denies tingling Neuro Denies dizziness, Denies headache(s), Denies numbness, Denies tingling and D enies weakness Psych Denies anxiety and Denies depression Endo Denies fatigue Aller/Immun Denies wheezing Physical exam (Primary Care) Vital Signs: Last Vital Signs Temp 97.3 F 07/09/25 09:41 Pulse 55 07/09/25 09:41 Resp 16 07/09/25 09:41 BP 148/94 H 07/09/25 09:41 Pulse Ox 98 07/09/25 09:41 Oxygen Delivery Method Room Air 07/09/25 09:41 BMI result Body Mass Index 42.3 Tobacco/Smoking Status: Tobacco use Status Tobacco use date assessed 04/07/25 07/09/25 09:36 Patient Tobacco Use Status Never used Tobacco 07/09/25 09:41 e-Cigarette/Vaping Use Never Used 07/09/25 09:41 PHQ-9: PHQ-9 Score PHQ-9: Total score 0 07/09/25 10:10 Depression Screening Interpretation: Negative Thrive Assessment: Date of Thrive Assessment Date Thrive assessed 08/05/24 07/09/25 09:36 Currently or been in a relationship where the following occur: No concerns reported Const General: well developed; No acute distress Nutritional Appearance: well nourished Orientation/consciousness: patient oriented x3 HENMT Head: Yes normocephalic and Yes atraumatic Eyes General: appearance normal, both eyes and all related structures Pupils: Equal, round and reactive pupils present EOM: EOMs intact bilaterally Resp Effort & Inspection: normal respiratory effort Neuro General: patient oriented x3 and gait normal Cranial nerves: Yes Equal, round and reactive pupils present Psych Affect: normal affect Results AMB Hemoglobin A1c AMB Hemoglobin A1c 6.2 % Last Edit by Hugo Beckford CMA on 07/09/25 09:56 Results Reviewed Results Reviewed: Laboratory Last Values Hgb A1c (Clinic) 6.2 % (4.0-6.0) H 07/09/25 09:54 Coding Level of Care Code Est Pt Level 4 (91172) Diagnoses Essential hypertension I10 Coronary artery disease I25.10 Pre-diabetes R73.03 Hyperlipidemia E78.5 Aortic stenosis I35.0 Assessment & Plan Assessment & Plan (1) Essential hypertension: Code(s): I10 - Essential (primary) hypertension Category: Medical Plan: Blood pressure in the office is high. Goal is less than 130/80 Patient notes that his blood pressures are more often well controlled at home; example given is 110/58. He will continue carvedilol and lisinopril as prescribed Will give him additional hydrochlorothiazide which he can take as b.i.d. if blood pressures are running high Encouraged weight loss and exercise and a diet low in salt/sodium (2) Coronary artery disease: Code(s): I25.10 - Atherosclerotic heart disease of [place] coronary artery without angina pectoris Category: Medical Plan: Followed by cardiology Stable Continue beta-jasper and lipid medications. He takes bempedoic acid and Zetia. Has not tolerated statins Follow-up with Cardiology as recommended (3) Pre-diabetes: Code(s): R73.03 - Prediabetes Category: Medical Plan: A1c 6.2% Encouraged diet low in sugars and starches Encouraged weight loss and exercise (4) Hyperlipidemia: Code(s): E78.5 - Hyperlipidemia, unspecified Category: Medical Plan: As above, taking bempedoic acid and Zetia Did not tolerate statins Due to recheck lipids-ordered. He is fasting will get these done today (5) Aortic stenosis: Code(s): I35.0 - Nonrheumatic aortic (valve) stenosis Category: Medical Plan: History of aortic stenosis and last echocardiogram on record is from 2022. Due to repeat this. 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 Panel Fast Today E78.5 - Hyperlipidemia, unspecified, Z00.00 - Encounter for general adult medical examination without abnormal findings Lipid Panel Today E78.5 - Hyperlipidemia, unspecified, Z00.00 - Encounter for general adult medical examination without abnormal findings Complete Blood Count Auto Diff Today Z00.00 - Encounter for general adult medical examination without abnormal findings CA echo transthoracic complete Today I10 - Essential (primary) hypertension, I35.0 - Nonrheumatic aortic (valve) stenosis
[2025-07-09 09:41] VITALS: BP 148/94; PULSE 55; RESP 16; TEMP 36.3; O2SAT 98; BMI 42.3
[2025-07-09 10:10] VITALS: BP 146/72
== END 2025-07-09 10:21 | disposition home or self-care (01) ==
LOC: HO.HMCFM 09:29
PROVIDERS: PCP Family Medicine; Visit Provider Family Medicine
DX: I10 Essential (primary) hypertension (principal); I25.10 Atherosclerotic heart disease of native coronary artery without angina pectoris; R73.03 Prediabetes; E78.5 Hyperlipidemia, unspecified; I35.0 Nonrheumatic aortic (valve) stenosis; Z13.9 Encounter for screening, unspecified